=== PATIENT | male | born 1935 | race Caucasian/White ===

== ENCOUNTER 2018-05-08 12:53 | Inpatient (IN) | payer MEDICARE, OTHER ==
[2018-05-08 13:08] VITALS: BMI 24.3
[2018-05-08] MEDS ORDERED: dilTIAZem HCL 50 MG/10 ML - 10 ML VIAL IVPUSH ONE (13:33)
--- NOTE | 2018-05-08 13:41 | PDOC ---
History of Present Illness - General Chief Complaint: Irregular Heart Beat Stated Complaint: EVALUATION FOR CARDIAC DISEASE Time Seen by Provider: 05/08/18 13:03 - History of Present Illness Initial Comments: 05/08/18 13:35 83 year old man with history of DM2, COPD, CAD s/p PCI (), Afib (2014) , GIB (2015) and pericardial effusion s/p pericardial window (11/2011) who presents from PCP after pre-op physical exam for potential prostate resection and found to be in A.fib w/ RVR. The patient denies any chest pain, palpitations , nausea, diaphoresis or lightheadedness. He denies any symptoms and states he feels fine. Per PCP - the patient has had palpitations for the past 6 months and dyspnea and fatigue for the past 6 months. PMHX: as in HPI PSHX: see below Meds: camilo, metoprolol, renexa, ASA, finesteride Allergies: NKDA Tob: 1-2 cigarettes/ day PCP: Rosaura Past History - Past Medical History Allergies/Adverse Reactions: Allergies Allergy/AdvReac Type Severity Reaction Status Date / Time No Known Allergies Allergy Verified 05/08/18 13:04 Home Medications: Ambulatory Orders Amlodipine Bes/Olmesartan Med [Camilo 5-20 mg Tablet] 1 each PO DAILY 05/08/18 Aspirin [ASA -] 81 mg PO DAILY 05/08/18 Finasteride 5 mg PO DAILY 05/08/18 Metoprolol Succinate 25 mg PO DAILY 05/08/18 Ranolazine [Ranexa] 500 mg PO BID 05/08/18 Silodosin [Rapaflo] 4 mg PO DAILY 05/08/18 Cardiac Disorders: Yes (cad, stents, window) COPD: Yes CHF: Yes (+/- ble edema) DVT: No HTN: Yes Hypercholesterolemia: Yes - Surgical History Abdominal Surgery: Yes (L INGUINAL HERNIA REPAIR) Cardiac Surgery: Yes (STENT 1 CARDIAC, 1 LOWER EXTREMITY, FLUID REMOVED FROM AROUND HEART) - Immunization History Immunization Up to Date: Yes - Suicide/Smoking/Psychosocial Hx Smoking Status: Yes Smoking History: Current some day smoker Have you smoked in the past 12 months: Yes Number of Cigarettes Smoked Daily: 2 If you are a former smoker, when did you quit?: 7 MO Information on smoking cessation initiated: No Hx Alcohol Use: No Drug/Substance Use Hx: No Substance Use Type: None Hx Substance Use Treatment: No Review of Systems - Review of Systems Able to Perform ROS?: Yes Is the patient limited Kyrgyz proficient: No Constitutional: No: Chills, Diaphoresis, Fever *Physical Exam - Vital Signs Last Vital Signs Temp Pulse Resp BP Pulse Ox 99.1 F 139 H 19 99/77 99 05/08/18 13:04 05/08/18 13:04 05/08/18 13:04 05/08/18 13:04 05/08/18 13:04 - Physical Exam Comments: 05/08/18 13:41 GENERAL: Awake, alert, and fully oriented, in no acute distress HEAD: No signs of trauma, normocephalic, atraumatic EYES: PERRLA, EOMI, sclera anicteric, conjunctiva clear ENT: oropharynx clear without exudates. Moist mucosa NECK: Normal ROM, supple, no lymphadenopathy, JVD, or masses LUNGS: No distress, speaks full sentences, inspiratory and expiratory wheeze throughout HEART: irregular tachycardic rhythm, normal S1 and S2, no murmurs, rubs or gallops, peripheral pulses normal and equal bilaterally. ABDOMEN: Soft, nontender, normoactive bowel sounds. No guarding, no rebound. No masses EXTREMITIES : Normal inspection, Normal range of motion, no edema. No clubbing or cyanosis. NEUROLOGICAL: Cranial nerves II through XII grossly intact. Normal speech, normal gait, no focal sensorimotor deficits SKIN: Warm, Dry, normal turgor, no rashes or lesions noted ED Treatment Course - LABORATORY CBC & Chemistry Diagram: 05/08/18 13:55 05/08/18 13:55 - RADIOLOGY Radiology Studies Ordered: Category Date Time Status CXRPORT [CHEST X-RAY PORTABLE*] [RAD] Stat Radiology 05/08/18 13:33 Ordered Medical Decision Making - Medical Decision Making 05/08/18 13:38 83 year old man with history of CAD s/p PCI (), Afib (2014), GIB and pericardial effusion (2015) who presents from PCP after routine visit and found to be in A.fib w/ RVR. The patient denies any chest pain, palpitations, nausea, diaphoresis or lightheadedness. He denies any symptoms and states he feels fine. DDX including but not limited to: A.fib w/ RVR vs ACS W/U: - trop, cbc, cmp - EKG - CXR Tx: - diltiazem 10mg IV, 30mg PO - 1L NS ED Course: Patient denies any symptoms. tachycardic, irregular rhythm. 05/08/18 13:59 Patient responding well to diltiazem, HR coming down 100-110, SBP 140s 05/08/18 15:00 Trop: negative labwork unremarkable. 05/08/18 15:30 Patient reassessed. Stable. No acute distress. Patient admitted to medicine. *DC/Admit/Observation/Transfer Diagnosis at time of Disposition: Atrial fibrillation with RVR - Discharge Dispostion Condition at time of disposition: Stable Decision to Admit order: Yes - Referrals - Patient Instructions - Post Discharge Activity
[2018-05-08] MEDS ORDERED: SODIUM CHLORIDE 1,000 ML IV SCH (13:45)
[2018-05-08] MEDS ORDERED: dilTIAZem HCL 125 MG/25 ML - 25 ML VIAL ONE (13:51)
[2018-05-08 14:24] LABS: BASO % 0.7 % (0-2.0); EOS % 2.7 % (0-4.5); HEMATOCRIT 50.7 % (35.4-49); HEMOGLOBIN 16.2 GM/dL (11.7-16.9); MCH 26.1 pg (25.7-33.7); MEAN CELL VOLUME 81.4 fl (80-96); MEAN PLT VOLUME 8.4 fl (7.5-11.1); MONO % 10.6 % (3.8-10.2); PLATELET COUNT 268 K/MM3 (134-434); RBC 6.23 M/mm3 (4.00-5.60); WHITE BLOOD COUNT 4.1 K/mm3 (4.0-10.0)
[2018-05-08] MEDS ORDERED: dilTIAZem HCL 30 MG TABLET (FP) PO ONE (14:35)
--- NOTE | 2018-05-08 14:37 | PDOC ---
Attending Attestation - Resident Resident Name: Gayatri Miles - ED Attending Attestation I have performed the following: I have examined & evaluated the patient, The case was reviewed & discussed with the resident, I agree w/resident's findings & plan - HPI HPI: 05/08/18 14:33 83y/o M h/o afib s/p ablation, pericardial effusion s/p drainage about 6y ago, sent from PCP office after routine pre-op clearance for prostate procedure for eval and management of afib with rvr. Patient initially denies any specific complaints, but there appears to be some history of dyspnea on exertion for several months, denies ever having chest pain or pressure or syncope. - Physicial Exam PE: 05/08/18 14:34 Afebrile. Heart rate 140-150, blood pressure stable Well-appearing seated in stretcher, speaking full sentences Bibasilar crackles with expiratory wheezing, otherwise no accessory muscle use or retractions Heart is irregular and tachycardic Abdomen benign No edema - Critical Care Time Total Critical Care Time: 45 Critical Care Statement: The care of this patient involved high complexity decision making to prevent further life threatening deterioration of the patient 's condition and/or to evaluate & treat vital organ system(s) failure or risk of failure. - Medical Decision Making 05/08/18 14:34 83-year-old male found to be atrial fibrillation with RVR at routine PCP visit, sent for management. Likely subacute or chronic, blood pressure stable here. Patient immediately placed on monitor, EKG showed rapid atrial fibrillation Cardizem IV push improved heart rate to about 110, oral dose given We'll check labs, repeat EKG, chest x-ray Admission for cardiac monitoring, echo, assessment for anticoagulations 05/08/18 15:49 improved after diltiazem, tolerating well with HR 80s, BP 120s. admitted to tele for further cardiac eval. Heart Score/ECG Review #1 ECG reviewed & interpreted by me at: 13:05 05/08/18 14:36 afib with rvr at 135, RBBB, strain pattern V4-V6 without EMELY #2 ECG reviewed & interpreted by me at: 15:31 05/08/18 15:40 afib at 83 with pvc/aberrant conduction. IRBBB, no acute ST changes.
[2018-05-08] MEDS ORDERED: dilTIAZem HCL 30 MG TABLET (FP) ONE (14:38)
[2018-05-08 14:48] LABS: ANION GAP 7 MMOL/L (8-16); BILIRUBIN,TOTAL 0.3 mg/dL (0.2-1.0); BLOOD UREA NITROGEN 10 mg/dL (7-18); CALCIUM 9.6 mg/dL (8.5-10.1); CHLORIDE 102 mmol/L (98-107); CO2 29 mmol/L (21-32); GLUCOSE,RANDOM 99 mg/dL (74-106); POTASSIUM 4.5 mmol/L (3.5-5.1); SGOT/AST 21 U/L (15-37); SGPT/ALT 22 U/L (12-78); SODIUM 138 mmol/L (136-145); TOT PROT 8.7 g/dl (6.4-8.2)
[2018-05-08 14:51] LABS: ALK PHOS 77 U/L (45-117)
--- NOTE | 2018-05-08 16:06 | PN ---
Teaching Attending Note Name of Resident: Torito Bruce ATTENDING PHYSICIAN STATEMENT I saw and evaluated the patient. I reviewed the resident's note and discussed the case with the resident. I agree with the resident's findings and plan as documented with exceptions below. 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 Laurel Hubbard today for pre-op clearance for Prostatic surgery and noted with Afib with RVR on EKG and sent to the ED. Patient declined any specific complaints but reports exertional dyspnea and fatigue over last 6 months. States was in his USOH till 10 days ago when noticed some hematuria, seen by Dr. Atkinson's office, had a ?cystoscopy, noted with enlarged prostate, 3 days later had ana hematuria, was seen by urologist, offered white which he declined. His urine cleared over the next few days, currently reports occasional scant bloody tinge. No abdominal pain, fevers, chills, dysuria, frequency, urgency, back pain, chest pain or pressure, arm or jaw pain or claudication symptoms. Reports not seen his supervisor blood donor recruiters in a sometime, no recent cardiac testing. 12 point ROS done, neg except above No recent dark or bloody stools noted. Home BP monitoring SBP 130s, intermittent HR upto 90s few times a week, noted recently. OBJECTIVE: Vital Signs Period Temp Pulse Resp BP Sys/[place] Pulse Ox Last 24 Hr 99.1 F 138-139 19 99-110/77-79 99 Intake & Output 05/05/18 05/06/18 05/07/18 05/08/18 23:59 23:59 23:59 23:59 Weight 170 lb GENERAL: Awake, alert, and fully oriented, in no acute distress. HEAD: Normal with no signs of trauma. EYES: Pupils equal, round and reactive to light, extraocular movements intact, sclera anicteric, conjunctiva clear. No lid lag. EARS, NOSE, THROAT: Ears normal, nares patent, oropharynx clear without exudates. Moist mucous membranes. NECK: soft, supple, no JVD or masses noted LUNGS: distant but positive air entry consistent with COPD, no rales or wheezing noted HEART: Irregular rapid, unable to appreciate murmur or rub, limited by his lungs ABDOMEN: Soft, nontender, not distended, normoactive bowel sounds, no guarding, no rebound, no masses. MUSCULOSKELETAL: Normal range of motion at all joints. No bony deformities or tenderness. No CVA tenderness. UPPER EXTREMITIES: 2+ pulses, warm, well-perfused. No cyanosis. No clubbing. No peripheral edema. LOWER EXTREMITIES: 2+ pulses, warm, well-perfused. No calf tenderness. No peripheral edema. NEUROLOGICAL: facial symmetry, tongue midline, EOMI, power 5/5, sensation grossly intact and symmetric Cranial nerves II-XII intact. Normal speech. Gait deferred PSYCHIATRIC: Cooperative. Good eye contact. Appropriate mood and affect. SKIN: Warm, dry, normal turgor, no rashes or lesions noted, normal capillary refill. Home Medications Medication Instructions Recorded Amlodipine Bes/Olmesartan Med 1 each PO DAILY 05/08/18 [Terri 5-20 mg Tablet] Aspirin [ASA -] 81 mg PO DAILY 05/08/18 Metoprolol Succinate 25 mg PO DAILY 05/08/18 Ranolazine [Ranexa] 500 mg PO BID 05/08/18 Silodosin [Rapaflo] 4 mg PO DAILY 05/08/18 Active Medications Sodium Chloride (Normal Saline -) 1,000 mls @ 42 mls/hr IV ASDIR MARIUM Last Admin: 05/08/18 14:26 Dose: 42 mls/hr Laboratory Results - last 24 hr 05/08/18 05/08/18 13:55 13:55 WBC 4.1 RBC 6.23 H Hgb 16.2 Hct 50.7 H D MCV 81.4 MCH 26.1 D MCHC 32.0 RDW 17.0 H Plt Count 268 D MPV 8.4 Absolute Neuts (auto) 2.0 Neutrophils % 49.0 D Lymphocytes % 37.0 D Monocytes % 10.6 H Eosinophils % 2.7 D Basophils % 0.7 D Nucleated RBC % 0 Sodium 138 Potassium 4.5 Chloride 102 Carbon Dioxide 29 Anion Gap 7 L BUN 10 Creatinine 1.0 Creat Clearance w eGFR > 60 Random Glucose 99 Calcium 9.6 Total Bilirubin 0.3 AST 21 D ALT 22 Alkaline Phosphatase 77 Creatine Kinase 148 Troponin I < 0.02 Total Protein 8.7 H Albumin 4.0 EKG 1 Afib 120s, RBBB, LVH with strain pattern, no ST elevations EKG 2 HR 80s, no new changes CXR - no acute process ASSESSMENT AND PLAN: 83 yom with pMHx of CAD s/p pci x1 (cliff[facility] to pLAD 2012, no ID), Pericardial effusion s/p window 2012, PAD s/p b/l le stenting approx 2011, , HTN, HLD, diastolic CHF, copd, paroxysmal AFib diagnosed in 2014, placed on xarelto, Acute GIB with 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 -Atrial fibrillation with RVR -BPH with hematuria - CAD s/p pci x1 (clifford to pLAD 2012, no ID) -Pericardial effusion s/p window 2012 -PAD s/p b/l le stenting approx 2011, -Acute GIB with severe anemia from AVM/Diluefoy lesion in 09/2015, s/p clipping/ cautery -Diastolic CHF -HTN -HLD -COPD PLan: Change toprol to metoprolol tartarte 25 mg TID for now. Lopressor 5 mg IV q4-6 hr prn for sustained HR > 120. Check TSH, 2 D echo. Cardiology consult Dr. Leach. Patient had reportedly declined xarelto in 2015 after his GI bleed and wanted to continue ASA. Currently discussed in detail, stroke risk. Patient still concerned about his hematuria and has a procedure planned and does not want anything more than ASA for now, though relays understanding of increased stroke risk with his Afib and risk factors. Will defer further discussion to cardiology. Likely benefit from pre-op stress testing, will defer to cardiology inpatient vs outpatient. Check u/a, urine culture given procedure planned. Hold other anti-hypertensives to allow room for rate controlling agent. Continue ASA/ranexa. Check lipid panel. Continue finasteride. Flomax inhouse, resume rapaflo on discharge. DVTPPX heparin for now. Smoking cessation counseling DIspo pending clinical improvement. Admit to telemetry. Plan discussed with patient in detail, all questions answered. Patient relays understanding and in agreement. Total admit time 65 min.
[2018-05-08] MEDS ORDERED: METOPROLOL TARTRATE 5 MG/5 ML VIAL IVPUSH PRN ×2 (16:55→17:23)
--- NOTE | 2018-05-08 17:09 | EKG ---
Test Reason : Blood Pressure : / mmHG Vent. Rate : 084 BPM Atrial Rate : 085 BPM P-R Int : 000 ms QRS Dur : 116 ms QT Int : 376 ms P-R-T Axes : 000 -63 039 degrees QTc Int : 444 ms ATRIAL FIBRILLATION WITH PREMATURE VENTRICULAR OR ABERRANTLY CONDUCTED COMPLEXES LEFT AXIS DEVIATION RIGHT BUNDLE BRANCH BLOCK INFERIOR INFARCT (CITED ON OR BEFORE 08-MAY-2018) ABNORMAL ECG Confirmed by MD ADÁN, JANETH (2012) on 05/08/2018 5:09:35 PM Referred By: Confirmed By:JANETH MCCAIN MD
--- NOTE | 2018-05-08 17:12 | HP ---
CHIEF COMPLAINT: rapid heart rate PCP: Rosaura HISTORY OF PRESENT ILLNESS: 83 yo male with PMH of A-fib not on AC, COPD, HTN, CAD s/p PCI 2011 and 2012, GI Bleed in 2016 presented to the ED after being sent by herbarium curator due to A- fib with RVR found in the office today. He was being optimized for a possible procedure of his prostate. He states that a week and a half ago he noted some clots in his urine. He was seen by his urologist who performed a cystoscopy at that time. He states he was asymptomatic for 3 days and then started noticing some hematuria 7 days ago. He was seen by the urologist who recomended a catheter until a possible procedure for his enlarged prostate, which he refused. He currently denies any fevers, chills, chest pain, SOB, palpitations, abdominal pain. Of note he states that during the elaine, he gets SOB on exertion though that does not happen during the cooler weather. He says that he requires 7 or 8 bottles of water per day with the heat. ER course was notable for: (1) EKG noted for A-fib with RVR (2) Cardizem 10 IV and 30 PO (3) Recent Travel: none PAST MEDICAL HISTORY: as above PAST SURGICAL HISTORY: Left Inguinal Hernia repair Cardiac stent, Leg stent Pericardial window 2011 for effusion Social History: Smokin-2 cigarettes per day Alcohol: none Drugs: none Family History: Allergies No Known Allergies Allergy (Verified 05/08/18 13:04) HOME MEDICATIONS: Home Medications Medication Instructions Recorded Amlodipine Bes/Olmesartan Med 1 each PO DAILY 05/08/18 [Terri 5-20 mg Tablet] Aspirin [ASA -] 81 mg PO DAILY 05/08/18 Metoprolol Succinate 25 mg PO DAILY 05/08/18 Ranolazine [Ranexa] 500 mg PO BID 05/08/18 Silodosin [Rapaflo] 4 mg PO DAILY 05/08/18 REVIEW OF SYSTEMS CONSTITUTIONAL: Absent: fever, chills, diaphoresis, generalized weakness, malaise, loss of appetite, weight change HEENT: Absent: rhinorrhea, nasal congestion, throat pain, throat swelling, difficulty swallowing, mouth swelling, ear pain, eye pain, visual changes CARDIOVASCULAR: Absent: chest pain, syncope, palpitations, irregular heart rate, lightheadedness , peripheral edema RESPIRATORY: dyspnea with exertion Absent: cough, shortness of breath, , orthopnea, wheezing, stridor, hemoptysis GASTROINTESTINAL: Absent: abdominal pain, abdominal distension, nausea, vomiting, diarrhea, constipation, melena, hematochezia GENITOURINARY: hematuria Absent: dysuria, frequency, urgency, hesitancy, , flank pain, genital pain MUSCULOSKELETAL: Absent: myalgia, arthralgia, joint swelling, back pain, neck pain SKIN: Absent: rash, itching, pallor HEMATOLOGIC/IMMUNOLOGIC: Absent: easy bleeding, easy bruising, lymphadenopathy, frequent infections ENDOCRINE: Absent: unexplained weight gain, unexplained weight loss, heat intolerance, cold intolerance NEUROLOGIC: Absent: headache, focal weakness or paresthesias, dizziness, unsteady gait, seizure, mental status changes, bladder or bowel incontinence PSYCHIATRIC: Absent: anxiety, depression, suicidal or homicidal ideation, hallucinations. PHYSICAL EXAMINATION Vital Signs - 24 hr 05/08/18 05/08/18 05/08/18 13:04 14:28 16:52 Temperature 99.1 F 98.2 F Pulse Rate 139 H Pulse Rate [ 138 H 95 H Left] Respiratory 19 18 Rate Blood Pressure 99/77 Blood Pressure 110/79 [Left Arm] Blood Pressure 111/76 [Right Arm] O2 Sat by Pulse 99 96 Oximetry (%) GENERAL: A&O, no acute distress HEAD: Normocephalic, atraumatic. EYES: PERRL, no scleral icterus EARS, NOSE, THROAT: oropharynx clear without exudates. Moist mucous membranes. NECK: supple without lymphadenopathy LUNGS: CTA b/l, no crackles or wheezes HEART: Irregularly irregular, no murmurs ABDOMEN: Soft, nontender to palpation, normoactive bowel sounds MUSCULOSKELETAL: No bony deformities or tenderness. EXTREMITIES: 2+ pulses, warm, well-perfused. No peripheral edema. Clubbing of digits. NEUROLOGICAL: Cranial nerves II-XII grossly intact. Normal speech. PSYCHIATRIC: Cooperative. Good eye contact. Appropriate mood and affect. SKIN: Warm, dry, no rashes or lesions noted Laboratory Results - last 24 hr 05/08/18 05/08/18 13:55 13:55 WBC 4.1 RBC 6.23 H Hgb 16.2 Hct 50.7 H D MCV 81.4 MCH 26.1 D MCHC 32.0 RDW 17.0 H Plt Count 268 D MPV 8.4 Absolute Neuts (auto) 2.0 Neutrophils % 49.0 D Lymphocytes % 37.0 D Monocytes % 10.6 H Eosinophils % 2.7 D Basophils % 0.7 D Nucleated RBC % 0 Sodium 138 Potassium 4.5 Chloride 102 Carbon Dioxide 29 Anion Gap 7 L BUN 10 Creatinine 1.0 Creat Clearance w eGFR > 60 Random Glucose 99 Calcium 9.6 Total Bilirubin 0.3 AST 21 D ALT 22 Alkaline Phosphatase 77 Creatine Kinase 148 Troponin I < 0.02 Total Protein 8.7 H Albumin 4.0 ASSESSMENT/PLAN: 83 yo male with PMH of A-fib not on AC, COPD, HTN, CAD s/p PCI 2011 and 2012, GI Bleed in 2016 admitted for A-fib with RVR A-fib with RVR -Sent by Cardiology for A-fib with RVR on ECG -ECG noted here, initially A-fib in 130s, down to 80-100 currently -Lopressor 25 mg PO TID for Rate control (hold for systolic b.p < 90) -Lopressor 5 mg IV Q4 PRN HR > 120 -Cardiology consulted -Echo ordered -UA ordered to rule out infectious causes -TSH ordered to r/o hypothyroidism HTN -B.P currently stable -Hold all other bp meds ([id number]) BPH with recent Hematuria -will monitor hematuria -continue home Rapaflo 4 mg PO Daily -UA as above COPD -Possible mild COPD noted on CT chest of prior admission -Pt not on any bronchodilators or steroids at home -Not in exacerbation at this time DVT Prophylaxis -Early ambulation, SCDs -Will hold until cardiology recommendation due to Hx GI bleed, current hematuria , and pt refusing blood thinners FEN -Fluids: none -Electrolytes: No electrolyte abnormalities, BMP in AM -Nutrition: Sodium controlled diet Disposition Telemetry Visit type - Emergency Visit Emergency Visit: Yes ED Registration Date: 05/08/18 Care time: The patient presented to the Emergency Department on the above date and was hospitalized for further evaluation of their emergent condition. - New Patient This patient is new to me today: Yes Date on this admission: 05/08/18 - Critical Care Critical Care patient: No Hospitalist Screening - Colonoscopy Questionnaire Colonoscopy Questionnaire: Colonoscopy Questionnaire - Patient: 50 - 75 years old and never had a screening colonoscopy: No History of colon or rectal polyps, or CA: Unknown History of IBD, Crohn's disease or UC: Unknown History of abdominal radiation therapy as a child: Unknown - Relative: 1 with colon or rectal CA, or polyps at age 60 or younger: Unknown Colon or rectal CA diagnosed at age 45 or younger: Unknown Multiple relatives with colon or rectal CA: Unknown - Outcome: Screening Result: Negative Screen
[2018-05-08] MEDS: ASPIRIN 81 MG CHEWABLE TABLETS PO SCH (20:35)
[2018-05-08] MEDS: RANOLAZINE E.R. 500 MG TABLET (FP) PO SCH (21:03)
[2018-05-08] MEDS: METOPROLOL TARTRATE 25 MG TABLET (FP) PO SCH (21:03)
[2018-05-08] MEDS: ENOXAPARIN NA (PORCINE) 80 MG/0.8 ML DISP.SYRIN SQ SCH (21:03)
[2018-05-08] MEDS ORDERED: METOPROLOL TARTRATE 25 MG TABLET (FP) PO SCH (22:00)
[2018-05-08] MEDS ORDERED: HEPARIN NA (PORCINE) 5,000 UNITS/ML 1ML VIAL SQ SCH (22:00)
--- NOTE | 2018-05-08 22:01 | CON.CARD ---
Consult - History of Present Illness History of Present Illness: 83 yo male with PMH of A-fib not on AC, COPD, HTN, CAD s/p PCI 2011 and 2013, GI Bleed in 2016 presented to the ED after being sent by mechanic due to A- fib with RVR found in the office today. He was being optimized for a possible procedure of his prostate. He states that a week and a half ago he noted some clots in his urine. He was seen by his urologist who performed a cystoscopy at that time. He states he was asymptomatic for 3 days and then started noticing some hematuria 7 days ago. He was seen by the urologist who recomended a catheter until a possible procedure for his enlarged prostate, which he refused. He currently denies any fevers, chills, chest pain, SOB, palpitations, abdominal pain. Of note he states that during the elaine, he gets SOB on exertion though that does not happen during the cooler weather. He says that he requires 7 or 8 bottles of water per day with the heat. ER course was notable for: (1) EKG noted for A-fib with RVR (2) Cardizem 10 IV and 30 PO - Past Medical History Cardio/Vascular: Yes: AFIB, CAD, CHF, HTN, Hyperlipdemia Pulmonary: Yes: COPD Endocrine: Yes: Diabetes Mellitus - Past Surgical History Past Surgical History: Yes: Hernia Repair, Stent (cardiac/lower extremity) - Alcohol/Substance Use Hx Alcohol Use: No History of Substance Use: reports: None - Smoking History Smoking history: Former smoker Have you smoked in the past 12 months: No Aproximately how many cigarettes per day: 2 If you are a former smoker, when did you quit?: few years - Social History History of Recent Travel: No Home Medications - Allergies Allergies/Adverse Reactions: Allergies Allergy/AdvReac Type Severity Reaction Status Date / Time No Known Allergies Allergy Verified 05/08/18 13:04 - Home Medications Home Medications: Ambulatory Orders Amlodipine Bes/Olmesartan Med [Terri 5-20 mg Tablet] 1 each PO DAILY 05/08/18 Aspirin [ASA -] 81 mg PO DAILY 05/08/18 Finasteride 5 mg PO DAILY 05/08/18 Metoprolol Succinate 25 mg PO DAILY 05/08/18 Ranolazine [Ranexa] 500 mg PO BID 05/08/18 Silodosin [Rapaflo] 4 mg PO DAILY 05/08/18 Vital Signs: Vital Signs Temperature 98.4 F 05/08/18 21:00 Pulse Rate 83 05/08/18 21:00 Respiratory Rate 17 05/08/18 21:00 Blood Pressure 111/62 05/08/18 21:00 O2 Sat by Pulse Oximetry (%) 96 05/08/18 16:52 - Other Data Labs, Other Data: CBC, BMP 05/08/18 13:55 05/08/18 13:55 Troponin, BNP 05/08/18 05/08/18 13:55 19:40 Troponin I < 0.02 < 0.02 Troponin, BNP 05/08/18 05/08/18 13:55 19:40 Troponin I < 0.02 < 0.02
[2018-05-09 03:29] LABS: URINE APPEARANCE CLEAR; URINE BILIRUBIN NEGATIVE (<2.0 mg/dL); URINE COLOR LTYELLOW; URINE GLUCOSE (UA) NEGATIVE (NEGATIVE); URINE KETONE NEGATIVE (NEGATIVE); URINE NITRITE NEGATIVE (NEGATIVE); URINE PROTEIN NEGATIVE (NEGATIVE); URINE UROBILINOGEN NEGATIVE mg/dL (0.2-1.0)
[2018-05-09 03:41] LABS: URINE LEUK ESTERASE 1+ (NEGATIVE)
[2018-05-09 03:42] LABS: URINE BACTERIA FEW /hpf (NONE SEEN); URINE MUCUS RARE
[2018-05-09] MEDS: METOPROLOL TARTRATE 25 MG TABLET (FP) PO SCH (06:23)
[2018-05-09 06:34] LABS: BASO % 0.8 % (0-2.0); HEMATOCRIT 40.4 % (35.4-49); HEMOGLOBIN 12.7 GM/dL (11.7-16.9); MCH 25.7 pg (25.7-33.7); MCHC 31.5 g/dl (32.0-35.9); MEAN CELL VOLUME 81.6 fl (80-96); NEUT % 37.2 % (42.8-82.8); PLATELET COUNT 188 K/MM3 (134-434); RBC 4.95 M/mm3 (4.00-5.60); RDW 16.9 % (11.9-15.9); WHITE BLOOD COUNT 3.5 K/mm3 (4.0-10.0)
[2018-05-09 07:13] LABS: CHOLESTEROL 146 mg/dL (50-200); TRIGLYCERIDES 190 mg/dL (35-160)
[2018-05-09 07:16] LABS: HDL CHOLESTEROL 25 mg/dL (40-60)
--- NOTE | 2018-05-09 07:52 | PN ---
Teaching Attending Note Name of Resident: Torito Bruce ATTENDING PHYSICIAN STATEMENT I saw and evaluated the patient. I reviewed the resident's note and discussed the case with the resident. I agree with the resident's findings and plan as documented with exceptions below. SUBJECTIVE: Patient seen and examined. had some dizziness last night but none recently. NO new chest pain, palpitations, or concerns. Feels well, no hematuria or bleed noted OBJECTIVE: Vital Signs Period Temp Pulse Resp BP Sys/[place] Pulse Ox Last 24 Hr 98.1 F-99.1 F 63-139 16-19 99-130/56-89 96-99 Intake & Output 05/06/18 05/07/18 05/08/18 05/09/18 23:59 23:59 23:59 23:59 Intake Total 574 130 Balance 574 130 Weight 170 lb General: sitting in bed in no acute distress Chest: CTAB, no rales or wheezing CVS: S1S2 regular Abdomen: soft, NT Extremities: no edema Active Medications Aspirin (Asa -) 81 mg PO DAILY [facility] Last Admin: 05/08/18 20:35 Dose: 81 mg Atorvastatin Calcium (Lipitor -) 20 mg PO HS [facility] Enoxaparin Sodium (Lovenox -) 80 mg SQ BID [facility] Last Admin: 05/08/18 21:03 Dose: 80 mg Finasteride (Proscar -) 5 mg PO DAILY [facility] Sodium Chloride (Normal Saline -) 1,000 mls @ 42 mls/hr IV ASDIR [facility] Last Admin: 05/08/18 14:26 Dose: 42 mls/hr Metoprolol Tartrate (Lopressor -) 25 mg PO TID [facility] Last Admin: 05/09/18 06:23 Dose: 25 mg Metoprolol Tartrate (Lopressor Injection -) 5 mg IVPUSH Q4H PRN PRN Reason: HYPERTENSION Ranolazine (Ranexa -) 500 mg PO BID [facility] Last Admin: 05/08/18 21:03 Dose: 500 mg Tamsulosin HCl (Flomax -) 0.4 mg PO DAILY@0830 [facility] Telemetry: reverted to NSr around midnight, in NSR currently 60s Laboratory Results - last 24 hr 05/08/18 05/08/18 05/08/18 13:55 13:55 19:40 WBC 4.1 RBC 6.23 H Hgb 16.2 Hct 50.7 H D MCV 81.4 MCH 26.1 D MCHC 32.0 RDW 17.0 H Plt Count 268 D MPV 8.4 Absolute Neuts (auto) 2.0 Neutrophils % 49.0 D Lymphocytes % 37.0 D Monocytes % 10.6 H Eosinophils % 2.7 D Basophils % 0.7 D Nucleated RBC % 0 Sodium 138 Potassium 4.5 Chloride 102 Carbon Dioxide 29 Anion Gap 7 L BUN 10 Creatinine 1.0 Creat Clearance w eGFR > 60 Random Glucose 99 Calcium 9.6 Phosphorus Magnesium Total Bilirubin 0.3 AST 21 D ALT 22 Alkaline Phosphatase 77 Creatine Kinase 148 Troponin I < 0.02 < 0.02 Total Protein 8.7 H Albumin 4.0 Triglycerides Cholesterol Total LDL Cholesterol HDL Cholesterol TSH Urine Color Urine Appearance Urine pH Ur Specific [place] Urine Protein Urine Glucose (UA) Urine Ketones Urine Blood Urine Nitrite Urine Bilirubin Urine Urobilinogen Ur Leukocyte Esterase Urine WBC (Auto) Urine RBC (Auto) Urine Bacteria Urine Mucus 05/08/18 05/09/18 05/09/18 19:40 00:01 05:30 WBC RBC Hgb Hct MCV MCH MCHC RDW Plt Count MPV Absolute Neuts (auto) Neutrophils % Lymphocytes % Monocytes % Eosinophils % Basophils % Nucleated RBC % Sodium Potassium Chloride Carbon Dioxide Anion Gap BUN Creatinine Creat Clearance w eGFR Random Glucose Calcium Phosphorus 3.0 D Magnesium 2.0 Total Bilirubin AST ALT Alkaline Phosphatase Creatine Kinase Troponin I Total Protein Albumin Triglycerides 190 H Cholesterol 146 Total LDL Cholesterol 104 H HDL Cholesterol 25 L D TSH 1.51 D Urine Color Ltyellow Urine Appearance Clear Urine pH 6.0 Ur Specific [place] 1.013 Urine Protein Negative Urine Glucose (UA) Negative Urine Ketones Negative Urine Blood Negative Urine Nitrite Negative Urine Bilirubin Negative Urine Urobilinogen Negative Ur Leukocyte Esterase 1+ H Urine WBC (Auto) 22 Urine RBC (Auto) 7 Urine Bacteria Few Urine Mucus Rare 05/09/18 05/09/18 05:30 05:30 WBC 3.5 L RBC 4.95 Hgb 12.7 Hct 40.4 D MCV 81.6 MCH 25.7 MCHC 31.5 L RDW 16.9 H Plt Count 188 D MPV 8.0 Absolute Neuts (auto) 1.3 L Neutrophils % 37.2 L D Lymphocytes % 43.0 H Monocytes % 12.0 H Eosinophils % 7.0 H D Basophils % 0.8 Nucleated RBC % 0 Sodium Cancelled Potassium Cancelled Chloride Cancelled Carbon Dioxide Cancelled Anion Gap Cancelled BUN Cancelled Creatinine Cancelled Creat Clearance w eGFR Cancelled Random Glucose Cancelled Calcium Cancelled Phosphorus Magnesium Total Bilirubin AST ALT Alkaline Phosphatase Creatine Kinase Troponin I Total Protein Albumin Triglycerides Cholesterol Total LDL Cholesterol HDL Cholesterol TSH Urine Color Urine Appearance Urine pH Ur Specific [place] Urine Protein Urine Glucose (UA) Urine Ketones Urine Blood Urine Nitrite Urine Bilirubin Urine Urobilinogen Ur Leukocyte Esterase Urine WBC (Auto) Urine RBC (Auto) Urine Bacteria Urine Mucus ASSESSMENT AND PLAN: 83 yom with pMHx of CAD s/p pci x1 ([place] to pLAD 2012, no NV), Pericardial effusion s/p window 2012, PAD s/p b/l le stenting approx 2011, , HTN, HLD, diastolic CHF, copd, paroxysmal AFib diagnosed in 2014, placed on xarelto, Acute GIB with 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 -Atrial fibrillation with RVR -BPH with hematuria - CAD s/p pci x1 (cl[place] to pLAD 2012, no NV) -Pericardial effusion s/p window 2012 -PAD s/p b/l le stenting approx 2011, -Acute GIB with severe anemia from AVM/Diluefoy lesion in 09/2015, s/p clipping/ cautery -Diastolic CHF -HTN -HLD -COPD PLan: Reverted to NSR. Metoprolol tartarte 25 mg BID as tolerated. Lopressor 5 mg IV q4-6 hr prn for sustained HR > 120. TSH WNL, follow up 2 D echo. Cardiology consulted, discussed with Dr. Joy. Stress test, NPO for now. Lipid panel noted, start lipitor 20 mg hs. Patient had reportedly declined xarelto in 2016 after his GI bleed and wanted to continue ASA. Currently discussed in detail, stroke risk. Patient still concerned about his hematuria and has a procedure planned and does not want anything more than ASA for now, though relays understanding of increased stroke risk with his Afib and risk factors. Will defer further discussion to cardiology. U/a noted. Hold other anti-hypertensives to allow room for rate controlling agent. Continue ASA/ranexa. Continue finasteride. Flomax inhouse, resume rapaflo on discharge. DVTPPX heparin for now. Smoking cessation counseling Dispo pending clinical improvement. Plan discussed with patient in detail, all questions answered. Patient relays understanding and in agreement.
[2018-05-09] MEDS ORDERED: TAMSULOSIN HCL 0.4 MG CAP.ER.24H (FP) PO SCH (08:30)
[2018-05-09] MEDS ORDERED: PATIENT'S OWN MEDICATION (NON-FORMULARY) (Silodosin [Rapaflo] 4 MG) PO SCH (10:00)
[2018-05-09] MEDS ORDERED: ASPIRIN 81 MG CHEWABLE TABLETS PO SCH (10:00)
[2018-05-09] MEDS ORDERED: FINASTERIDE 5 MG TABLET (FP) PO SCH (10:00)
--- NOTE | 2018-05-09 10:28 | CON.CARD ---
Consult Consult Specialty:: cardiology Reason for Consultation:: AF - History of Present Illness Chief Complaint: Pt A&Ox3; no chest pain; + SOB on minimal exertion History of Present Illness: 83 year old man (linsey Cramer) with history of DM2, COPD, CAD s/p PCI (), Afib (2014), GIB (2015) and pericardial effusion--> pericardial window (11/2011) , who presents from PCP after pre-op physical exam for potential prostate resection and found to be in A.fib w/ RVR. The patient denies any chest pain, palpitations, nausea, diaphoresis or lightheadedness. He denies any symptoms and states he feels fine. Per PCP - the patient has had palpitations for the past 6 months and dyspnea and fatigue for the past 6 months. PMHX: as in HPI PSHX: see below Meds: camilo, metoprolol, renexa, ASA, finesteride Allergies: NKDA Tob: 1-2 cigarettes/ day - History Source History Provided By: Patient, Medical Record Limitations to Obtaining History: No Limitations - Past Medical History Cardio/Vascular: Yes: AFIB, CAD, CHF, HTN, Hyperlipdemia Pulmonary: Yes: COPD Gastrointestinal: Yes: GERD Endocrine: Yes: Diabetes Mellitus - Past Surgical History Past Surgical History: Yes: Hernia Repair, Stent (cardiac/lower extremity) - Alcohol/Substance Use Hx Alcohol Use: No History of Substance Use: reports: None - Smoking History Smoking history: Former smoker Have you smoked in the past 12 months: No Aproximately how many cigarettes per day: 2 If you are a former smoker, when did you quit?: few years - Social History History of Recent Travel: No Home Medications - Allergies Allergies/Adverse Reactions: Allergies Allergy/AdvReac Type Severity Reaction Status Date / Time No Known Allergies Allergy Verified 05/08/18 13:04 - Home Medications Home Medications: Ambulatory Orders Amlodipine Bes/Olmesartan Med [[place] 5-20 mg Tablet] 1 each PO DAILY 05/08/18 Aspirin [ASA -] 81 mg PO DAILY 05/08/18 Finasteride 5 mg PO DAILY 05/08/18 Metoprolol Succinate 25 mg PO DAILY 05/08/18 Ranolazine [Ranexa] 500 mg PO BID 05/08/18 Silodosin [Rapaflo] 4 mg PO DAILY 05/08/18 Family Disease History - Family Disease History Family History: Denies Review of Systems - Review of Systems Constitutional: reports: No Symptoms Eyes: reports: No Symptoms HENT: reports: No Symptoms Neck: reports: No Symptoms Cardiovascular: reports: No Symptoms Respiratory: reports: No Symptoms Gastrointestinal: reports: No Symptoms Genitourinary: reports: No Symptoms Breasts: reports: No Symptoms Reported Musculoskeletal: reports: No Symptoms Integumentary: reports: No Symptoms Neurological: reports: No Symptoms Endocrine: reports: No Symptoms Hematology/Lymphatic: reports: No Symptoms Psychiatric: reports: No Symptoms - Risk Factors Known Risk Factors: Yes: Age, Diabetes Mellitus, Gender, Hypercholesterolemia, Hypertension, Physical Inactivity, Smoking, Other (CAD-->coronary stent) Vital Signs: Vital Signs Temperature 98.3 F 05/09/18 05:00 Pulse Rate 63 05/09/18 09:00 Respiratory Rate 22 05/09/18 09:00 Blood Pressure 128/75 05/09/18 09:00 O2 Sat by Pulse Oximetry (%) 98 05/08/18 22:00 Constitutional: Yes: Calm Eyes: Yes: WNL HENT: Yes: WNL Neck: Yes: WNL Respiratory: Yes: WNL Gastrointestinal: Yes: WNL Renal/: No: Anuria Cardiovascular: Yes: Pulse Irregular JVD: No Carotid Bruit: No PMI: Non-Displaced Heart Sounds: Yes: S1 (varies in intensity) Murmur: Yes: Systolic Murmur, Grade 2 Musculoskeletal: Yes: WNL Extremities: Yes: WNL Edema: No Peripheral Pulses WNL: Yes Integumentary: Yes: WNL Neurological: Yes: WNL Psychiatric: Yes: WNL - Other Data Labs, Other Data: CBC, BMP 05/09/18 05:30 Troponin, BNP 05/08/18 05/08/18 13:55 19:40 Troponin I < 0.02 < 0.02 Troponin, BNP 05/08/18 05/08/18 13:55 19:40 Troponin I < 0.02 < 0.02 Imaging - Results EKG: Image Reviewed (AF; RBBB;) Problem List - Problems (1) Atrial fibrillation with RVR Assessment/Plan: On metoprolol for HR control ((Hx COPD; assure pt does not have bronchial asthma ). Pt says he has been on ASA. With AF and his [id number] score, he should be on warfarin or a NOAC, but gives hx GI bleed in the past. Hx coronary stent a few years ago; continue ASA. Code(s): I48.91 - UNSPECIFIED ATRIAL FIBRILLATION (2) Acute exacerbation of chronic obstructive pulmonary disease Code(s): J44.1 - CHRONIC OBSTRUCTIVE PULMONARY DISEASE W (ACUTE) EXACERBATION (3) Tobacco dependence Assessment/Plan: the importance of smoking cessation was discussed. Code(s): F17.200 - NICOTINE DEPENDENCE, UNSPECIFIED, UNCOMPLICATED (4) COPD (chronic obstructive pulmonary disease) Assessment/Plan: mild COPD on 2016 CT chest; recommend f/u study, in view of continued tobacco use. Code(s): J44.9 - CHRONIC OBSTRUCTIVE PULMONARY DISEASE, UNSPECIFIED (5) CAD (coronary artery disease) Assessment/Plan: f/o record (hx CAD-->coronary stent by Dr. Godinez several years ago). F/u lipids; statin. F/u pulmonary w/u (COPD). Encourage tobacco cessation. Consider stress MIBI. Code(s): I25.10 - ATHSCL HEART DISEASE OF [place] CORONARY ARTERY W/O ANG PCTRS (6) [place] cardiac risk >20% in next 10 years Assessment/Plan: Pt for stress MIBI in am. Code(s): Z91.89 - OTH PERSONAL RISK FACTORS, NOT ELSEWHERE CLASSIFIED
[2018-05-09] MEDS ORDERED: REGADENOSON 0.4 MG/5 ML PRE-FILLED SYRINGE IVPUSH ONE ×2 (11:45→11:53)
--- NOTE | 2018-05-09 11:51 | EKG ---
Test Reason : Blood Pressure : / mmHG Vent. Rate : 135 BPM Atrial Rate : 208 BPM P-R Int : 000 ms QRS Dur : 104 ms QT Int : 308 ms P-R-T Axes : 000 -52 034 degrees QTc Int : 462 ms POOR DATA QUALITY, INTERPRETATION MAY BE ADVERSELY AFFECTED ATRIAL FIBRILLATION WITH RAPID VENTRICULAR RESPONSE LEFT AXIS DEVIATION INCOMPLETE RIGHT BUNDLE BRANCH BLOCK INFERIOR INFARCT (CITED ON OR BEFORE 08-MAY-2018) ABNORMAL ECG WHEN COMPARED WITH ECG OF 12-DEC-2015 10:28, ATRIAL FIBRILLATION HAS REPLACED SINUS RHYTHM VENT. RATE HAS INCREASED BY [address] NOW DEPRESSED IN ANTERIOR LEADS Confirmed by AILEEN FINN, MARY ([id number]) on 05/09/2018 11:51:18 AM Referred By: Confirmed By:MARY GALLAGHER MD
--- NOTE | 2018-05-09 12:04 | ECHO ---
Name: ALVERTO ONEAL Exam:Adult Echocardiogram Study Date: 05/09/2018 07:31 AM Age: 83 yrs Reason For Study: A-Fib Height: 70 in Weight: 170 lb BSA: 1.9 m2 MMode/2D Measurements & Calculations IVSd: 1.3 cm Ao root diam: 3.5 cm LVIDd: 4.0 cm LA dimension: 3.4 cm LVIDs: 2.6 cm LVPWd: 1.1 cm EDV(Teich): 68.7 ml LAV (MOD-bp): 40.6 ml ESV(Teich): 25.2 ml Doppler Measurements & Calculations MV E max dre: 70.3 cm/sec MR max dre: 246.4 cm/sec MV A max dre: 67.9 cm/sec MR max P.3 mmHg MV E/A: 1.0 MV dec time: 0.50 sec TR max dre: 238.6 cm/sec Med Peak E' Dre: 8.1 cm/sec TR max P.8 mmHg Med E/e': 8.7 Lat Peak E' Dre: 7.4 cm/sec Lat E/e': 9.5 PI Vmax: 127.6 cm/sec Procedure A two-dimensional transthoracic echocardiogram with color flow and Doppler was performed. The patient was in normal sinus rhythm during the exam. Left Ventricle The left ventricular size, thickness and function are normal. The left ventricular ejection fraction is normal. Left Ventricular Filling pattern is normal for age. The left ventricular wall motion is hayden l. Right Ventricle The right ventricle is normal in size and function. Atria Normal left and right atrial size and function. Mitral Valve There is mild mitral valve thickening. There is no mitral valve stenosis. There is mild to moderate m itral regurgitation. Tricuspid Valve There is mild tricuspid valve thickening. There is no tricuspid stenosis. There is moderate to severe tricuspid regurgitation. Right ventricular systolic pressure is normal. Aortic Valve The aortic valve is normal in structure and function. No hemodynamically significant valvular aortic stenosis. No aortic regurgitation is present. Pulmonic Valve The pulmonic valve is not well visualized. There is no pulmonic valvular stenosis. Trace to mild pulm onic valvular regurgitation. Great Vessels The aortic root is normal size. Pericardium/Pleura There is no pericardial effusion. Interpretation Summary The patient was in normal sinus rhythm during the exam. A two-dimensional transthoracic echocardiogram with color flow and Doppler was performed. The left ventricular size, thickness and function are normal The left ventricular ejection fraction is normal. There is mild to moderate mitral regurgitation. There is moderate to severe tricuspid regurgitation. Right ventricular systolic pressure is normal. Left Ventricular Filling pattern is normal for age. The left ventricular wall motion is normal. MD Ryan Joy 05/09/2018 12:03 PM
[2018-05-09 12:18] LABS: ANION GAP 7 MMOL/L (8-16); BLOOD UREA NITROGEN 13 mg/dL (7-18); CALCIUM 8.6 mg/dL (8.5-10.1); CHLORIDE 108 mmol/L (98-107); CO2 27 mmol/L (21-32); GLUCOSE,RANDOM 98 mg/dL (74-106); POTASSIUM 4.7 mmol/L (3.5-5.1); SODIUM 142 mmol/L (136-145)
--- NOTE | 2018-05-09 14:43 | DS ---
Physical Exam: SUBJECTIVE: Patient seen and examined this AM. He mentions that he had some dizziness when he stood up too quickly but otherwise has no complaints at all overnight. Denies any chest pain, SOB, palpitations, n/v/d. OBJECTIVE: Vital Signs Period Temp Pulse Resp BP Sys/[place] Pulse Ox Last 24 Hr 98.1 F-98.4 F 63-102 16-22 100-130/56-89 96-98 PHYSICAL EXAM GENERAL: A&O, no acute distress HEAD: Normocephalic, atraumatic. EYES: PERRL, no scleral icterus EARS, NOSE, THROAT: oropharynx clear without exudates. Moist mucous membranes. NECK: supple without lymphadenopathy LUNGS: CTA b/l, no crackles or wheezes HEART: Regular rate and rythm today, no murmurs ABDOMEN: Soft, nontender to palpation, normoactive bowel sounds MUSCULOSKELETAL: No bony deformities or tenderness. EXTREMITIES: 2+ pulses, warm, well-perfused. No peripheral edema. Clubbing of digits. NEUROLOGICAL: Cranial nerves II-XII grossly intact. Normal speech. PSYCHIATRIC: Cooperative. Good eye contact. Appropriate mood and affect. SKIN: Warm, dry, no rashes or lesions noted LABS Laboratory Results - last 24 hr 05/08/18 05/08/18 05/08/18 13:55 19:40 19:40 WBC RBC Hgb Hct MCV MCH MCHC RDW Plt Count MPV Absolute Neuts (auto) Neutrophils % Lymphocytes % Monocytes % Eosinophils % Basophils % Nucleated RBC % Sodium 138 Potassium 4.5 Chloride 102 Carbon Dioxide 29 Anion Gap 7 L BUN 10 Creatinine 1.0 Creat Clearance w eGFR > 60 Random Glucose 99 Calcium 9.6 Phosphorus Magnesium Total Bilirubin 0.3 AST 21 D ALT 22 Alkaline Phosphatase 77 Creatine Kinase 148 Troponin I < 0.02 < 0.02 Total Protein 8.7 H Albumin 4.0 Triglycerides Cholesterol Total LDL Cholesterol HDL Cholesterol TSH 1.51 D Urine Color Urine Appearance Urine pH Ur Specific [place] Urine Protein Urine Glucose (UA) Urine Ketones Urine Blood Urine Nitrite Urine Bilirubin Urine Urobilinogen Ur Leukocyte Esterase Urine WBC (Auto) Urine RBC (Auto) Urine Bacteria Urine Mucus 05/09/18 05/09/18 05/09/18 00:01 05:30 05:30 WBC 3.5 L RBC 4.95 Hgb 12.7 Hct 40.4 D MCV 81.6 MCH 25.7 MCHC 31.5 L RDW 16.9 H Plt Count 188 D MPV 8.0 Absolute Neuts (auto) 1.3 L Neutrophils % 37.2 L D Lymphocytes % 43.0 H Monocytes % 12.0 H Eosinophils % 7.0 H D Basophils % 0.8 Nucleated RBC % 0 Sodium 142 Potassium 4.7 Chloride 108 H Carbon Dioxide 27 Anion Gap 7 L BUN 13 Creatinine 1.0 Creat Clearance w eGFR > 60 Random Glucose 98 Calcium 8.6 Phosphorus 3.0 D Magnesium 2.0 Total Bilirubin AST ALT Alkaline Phosphatase Creatine Kinase Troponin I Total Protein Albumin Triglycerides 190 H Cholesterol 146 Total LDL Cholesterol 104 H HDL Cholesterol 25 L D TSH Urine Color Ltyellow Urine Appearance Clear Urine pH 6.0 Ur Specific [place] 1.013 Urine Protein Negative Urine Glucose (UA) Negative Urine Ketones Negative Urine Blood Negative Urine Nitrite Negative Urine Bilirubin Negative Urine Urobilinogen Negative Ur Leukocyte Esterase 1+ H Urine WBC (Auto) 22 Urine RBC (Auto) 7 Urine Bacteria Few Urine Mucus Rare 05/09/18 05:30 WBC RBC Hgb Hct MCV MCH MCHC RDW Plt Count MPV Absolute Neuts (auto) Neutrophils % Lymphocytes % Monocytes % Eosinophils % Basophils % Nucleated RBC % Sodium Cancelled Potassium Cancelled Chloride Cancelled Carbon Dioxide Cancelled Anion Gap Cancelled BUN Cancelled Creatinine Cancelled Creat Clearance w eGFR Cancelled Random Glucose Cancelled Calcium Cancelled Phosphorus Magnesium Total Bilirubin AST ALT Alkaline Phosphatase Creatine Kinase Troponin I Total Protein Albumin Triglycerides Cholesterol Total LDL Cholesterol HDL Cholesterol TSH Urine Color Urine Appearance Urine pH Ur Specific [place] Urine Protein Urine Glucose (UA) Urine Ketones Urine Blood Urine Nitrite Urine Bilirubin Urine Urobilinogen Ur Leukocyte Esterase Urine WBC (Auto) Urine RBC (Auto) Urine Bacteria Urine Mucus IMAGING: CXR: No Acute Chest Pathology ECHO: Moderate to Severe Mitral Regurgitation, otherwise normal echo LEXISCAN stress test: Negative for Ischemia HOSPITAL COURSE: Date of Admission:05/08/18 Date of Discharge: 05/09/18 The patient was admitted to the hospital for A-fib with RVR and a recent complaint of hematuria which was not currently occurring on admission. He has a history of A-fib and mentions that he checks his blood pressure at home and finds his pulse often in the 130s. He is not on anticoagulation due to a GI bleed a few years ago, and on extensive discussion, does not want to be placed back on any anticoagulation at this time. His rate was controlled with Lopressor 25 mg PO with Lopressor 5 mg IV PRN which he did not require. He was switched back to his home Toprol XL dose of 25 mg Daily. During his admission, an ECHO was performed as above, and he was seen by cardiology who recommended a Lexiscan which was negative as reported as above. He was deemed medically safe for discharge with close follow up by solution lead, PCP, and Urology. Minutes to complete discharge: 40 Discharge Summary Reason For Visit: ATRIAL FIB W RAPID VENTRICULAR RESPONSE Current Active Problems Atrial fibrillation with RVR (Acute) Condition: Stable - Instructions Diet, Activity, Other Instructions: You were admitted to the hospital after being sent by your solution lead for a rapid heart rate. Your heart rate was controlled with medication. An ultrasound of your heart was done which shows you have a valve (your tricuspid valve) that is leaky. You were seen by Cardiology who recommended that you have a stress test of your heart done which did not show any abnormalities. At this time you are medically safe to go home with close follow up by your solution lead. It is important that you discuss with your primary care physician about blood thinners considering your history of the irregular heart rate and stents. It is very important that you follow up with your solution lead within a week. You should also follow up with your primary care physician within one week. You should follow up with your urologist who can discuss with you further management of your enlarged prostate and blood in your urine. Please continue taking all of your home meds as you were prior to admission to the hospital. It is very important that if you have a rapid heart rate, palpitations, lightheadedness, any loss of consciousness, or chest pain, that you speak with your solution lead, call 911, or return to the Emergency Department immediately. Referrals: Joe Atkinson MD [Staff Physician] - 2 Weeks Tino Kaplan MD [Staff Physician] - 1 Week Disposition: HOME - Home Medications Comprehensive Discharge Medication List: Ambulatory Orders Amlodipine Bes/Olmesartan Med [[place]ri 5-20 mg Tablet] 1 each PO DAILY 05/08/18 Aspirin [ASA -] 81 mg PO DAILY 05/08/18 Finasteride 5 mg PO DAILY 05/08/18 Metoprolol Succinate 25 mg PO DAILY 05/08/18 Ranolazine [Ranexa] 500 mg PO BID 05/08/18 Silodosin [Rapaflo] 4 mg PO DAILY 05/08/18 This patient is new to me today: No Emergency Visit: Yes ED Registration Date: 05/08/18 Care time: The patient presented to the Emergency Department on the above date and was hospitalized for further evaluation of their emergent condition. Critical Care patient: No - Discharge Referral Referred to [facility] Med P.C[facility] No
[2018-05-09 15:00] VITALS: BP 157/76; PULSE 64; TEMP 98
[2018-05-09] MEDS: ASPIRIN 81 MG CHEWABLE TABLETS PO SCH (15:00)
[2018-05-09] MEDS: RANOLAZINE E.R. 500 MG TABLET (FP) PO SCH (15:00)
[2018-05-09] MEDS: ENOXAPARIN NA (PORCINE) 80 MG/0.8 ML DISP.SYRIN SQ SCH (15:00)
--- NOTE | 2018-05-09 21:47 | PN ---
Progress Note, Physician Chief Complaint: Pt A&Ox3; no palpitations or chest pain. History of Present Illness: 83 year old man (linsey Cramer) with history of DM2, COPD, CAD s/p PCI (), Afib (2014), GIB (2015) and pericardial effusion--> pericardial window (11/2011) , who presents from PCP after pre-op physical exam for potential prostate resection and found to be in A.fib w/ RVR. The patient denies any chest pain, palpitations, nausea, diaphoresis or lightheadedness. He denies any symptoms and states he feels fine. Per PCP - the patient has had palpitations for the past 6 months and dyspnea and fatigue for the past 6 months. PMHX: as in HPI PSHX: see below Meds: camilo, metoprolol, renexa, ASA, finesteride Allergies: NKDA Tob: 1-2 cigarettes/ day - Objective Vital Signs: Vital Signs Temperature 98 F 05/09/18 14:58 Pulse Rate 64 05/09/18 14:58 Respiratory Rate 18 05/09/18 14:58 Blood Pressure 157/76 05/09/18 14:58 O2 Sat by Pulse Oximetry (%) 98 05/08/18 22:00 Constitutional: Yes: No Distress Eyes: Yes: WNL HENT: Yes: WNL Neck: Yes: WNL Cardiovascular: Yes: Pulse Irregular Respiratory: Yes: WNL Gastrointestinal: Yes: WNL ...Rectal Exam: Yes: Deferred Genitourinary: No: Anuria Musculoskeletal: Yes: Joint Stiffness Extremities: Yes: WNL Edema: No Peripheral Pulses WNL: Yes Integumentary: Yes: WNL Neurological: Yes: WNL Psychiatric: Yes: WNL Labs: CBC, BMP 05/09/18 05:30 05/09/18 05:30 Abnormal Lab Results 05/09/18 05/09/18 05/09/18 00:01 05:30 05:30 WBC 3.5 L MCHC 31.5 L RDW 16.9 H Absolute Neuts (auto) 1.3 L Neutrophils % 37.2 L D Lymphocytes % 43.0 H Monocytes % 12.0 H Eosinophils % 7.0 H D Chloride 108 H Anion Gap 7 L Triglycerides 190 H Total LDL Cholesterol 104 H HDL Cholesterol 25 L D Ur Leukocyte Esterase 1+ H Problem List - Problems (1) Atrial fibrillation with RVR Assessment/Plan: On metoprolol for HR control ((Hx COPD; assure pt does not have bronchial asthma ). Pt says he has been on ASA. With AF and his [id number] score, he should be on warfarin or a NOAC, but gives hx GI bleed in the past. F/u GI and hematology workup. Hx coronary stent a few years ago; continue ASA. Stress MIBI negative today; f/u pt as outpatient, from cardiac perspective. Code(s): I48.91 - UNSPECIFIED ATRIAL FIBRILLATION (2) Acute exacerbation of chronic obstructive pulmonary disease Code(s): J44.1 - CHRONIC OBSTRUCTIVE PULMONARY DISEASE W (ACUTE) EXACERBATION (3) Tobacco dependence Assessment/Plan: the importance of smoking cessation was discussed. Code(s): F17.200 - NICOTINE DEPENDENCE, UNSPECIFIED, UNCOMPLICATED (4) COPD (chronic obstructive pulmonary disease) Assessment/Plan: mild COPD on 2016 CT chest; recommend f/u study, in view of continued tobacco use. Code(s): J44.9 - CHRONIC OBSTRUCTIVE PULMONARY DISEASE, UNSPECIFIED (5) CAD (coronary artery disease) Assessment/Plan: Stress MIBI today: negative for myocardial ischemia. f/u record (hx CAD-->coronary stent by Dr. Godinez several years ago). F/u lipids; statin. F/u pulmonary w/u (COPD). Encourage tobacco cessation. Code(s): I25.10 - ATHSCL HEART DISEASE OF [place] CORONARY ARTERY W/O ANG PCTRS (6) [place] cardiac risk >20% in next 10 years Assessment/Plan: Stress MIBI today: no myocardial ischemia. Aggressive lipid and BP control. Smoking cessation. Increase daily exercise. Heart-healthy diet. Code(s): Z91.89 - OTH PERSONAL RISK FACTORS, NOT ELSEWHERE CLASSIFIED
[2018-05-09] MEDS ORDERED: ATORVASTATIN CA 20 MG TABLET (FP) PO SCH (22:00)
[2018-05-09] MEDS ORDERED: METOPROLOL TARTRATE 25 MG TABLET (FP) PO SCH (22:00)
== END 2018-05-09 18:00 | disposition home or self-care (01) | DRG 309 ==
LOC: JER 12:53 → JERBED 15:11 → INTOOBSV 15:11 → UNDOADMOB 15:11 → J4W 16:55 → JERBED 17:06 → J4W 17:06 → OBSVTOIN 17:13
PROVIDERS: ADMIT Hospitalist; ATTEND Hospitalist
DX: I48.0 Paroxysmal atrial fibrillation (principal); I50.32 Chronic diastolic (congestive) heart failure; I11.0 Hypertensive heart disease with heart failure; J44.9 Chronic obstructive pulmonary disease, unspecified; E11.9 Type 2 diabetes mellitus without complications; Z98.61 Coronary angioplasty status; I25.10 Atherosclerotic heart disease of native coronary artery without angina pectoris; I45.10 Unspecified right bundle-branch block; E78.5 Hyperlipidemia, unspecified; N40.0 Benign prostatic hyperplasia without lower urinary tract symptoms; F17.210 Nicotine dependence, cigarettes, uncomplicated; D64.9 Anemia, unspecified; I34.0 Nonrheumatic mitral (valve) insufficiency
CPT/HCPCS: 36415; 71045-TC-FY; 78452-TC; 80048; 80053; 80061; 81003; 81015; 82550; 83721; 83735; 84100; 84443; 84484; 85025; 87086; 93005; 93010; 93017; 93306-TC; 99283-25; A9502; G0378; J2785; J7030

== ENCOUNTER 2018-12-10 13:31 | Inpatient (IN) | payer MEDICARE, OTHER ==
--- NOTE | 2018-12-10 14:33 | PDOC ---
History of Present Illness - General Chief Complaint: Lightheaded Stated Complaint: RT LEG NUMBNESS Time Seen by Provider: 12/10/18 14:29 - History of Present Illness Initial Comments: 12/10/18 14:32 Mr. Puentes is an 83 yo male w/ pmh of COPD, CAD (s/p PCI), afib (on ASA only as prior GI bleed), and pericardial effusion requiring pericardial window (11/2011) who presents for evaluation of 1 week history of bilateral leg numbness he describes as a throbbing sensation w/ heat in his legs. Pain is worse when he walks around and includes dyspnea on exertion. Patient reports he has previously had stents placed in his legs bilaterally for "not enough bloodflow" although he cannot report where in the legs. Patient was a smoker until approximately a year ago. The patient denies chest pain, headache and dizziness. Denies fever, chills, nausea, vomit, diarrhea and constipation. Denies dysuria, frequency, urgency and hematuria. Past History - Past Medical History Allergies/Adverse Reactions: Allergies Allergy/AdvReac Type Severity Reaction Status Date / Time No Known Allergies Allergy Verified 12/10/18 13:49 Home Medications: Ambulatory Orders Amlodipine Bes/Olmesartan Med [Terri 5-20 mg Tablet] 1 each PO DAILY 05/08/18 Aspirin [ASA -] 81 mg PO DAILY 05/08/18 Finasteride 5 mg PO DAILY 05/08/18 Metoprolol Succinate 25 mg PO DAILY 05/08/18 Ranolazine [Ranexa] 500 mg PO BID 05/08/18 Silodosin [Rapaflo] 4 mg PO DAILY 05/08/18 Cardiac Disorders: Yes (cad, stents, window) COPD: Yes CHF: Yes (+/- ble edema) DVT: No HTN: Yes Hypercholesterolemia: Yes - Surgical History Abdominal Surgery: Yes (L INGUINAL HERNIA REPAIR) Cardiac Surgery: Yes (STENT 1 CARDIAC, 1 LOWER EXTREMITY, FLUID REMOVED FROM AROUND HEART) - Immunization History Immunization Up to Date: Yes - Suicide/Smoking/Psychosocial Hx Smoking Status: Yes Smoking History: Former smoker Have you smoked in the past 12 months: Yes Number of Cigarettes Smoked Daily: 3 If you are a former smoker, when did you quit?: 6 months ago Information on smoking cessation initiated: No Hx Alcohol Use: No Drug/Substance Use Hx: No Substance Use Type: None Hx Substance Use Treatment: No Review of Systems - Review of Systems Comments:: 12/10/18 14:33 GENERAL/CONSTITUTIONAL: No fever or chills. No weakness. HEAD, EYES, EARS, NOSE AND THROAT: No change in vision. No ear pain or discharge. No sore throat. CARDIOVASCULAR: +Dyspnea on exertion as described. No chest pain RESPIRATORY: No cough, wheezing, or hemoptysis. GASTROINTESTINAL: No nausea, vomiting, diarrhea or constipation. GENITOURINARY: No dysuria, frequency, or change in urination. MUSCULOSKELETAL: +JOSE leg pain as described. No joint or muscle swelling or pain. No neck or back pain. SKIN: No rash NEUROLOGIC: No headache, vertigo, loss of consciousness, or change in strength/ sensation. ENDOCRINE: No increased thirst. No abnormal weight change HEMATOLOGIC/LYMPHATIC: No anemia, easy bleeding, or history of blood clots. ALLERGIC/IMMUNOLOGIC: No hives or skin allergy. *Physical Exam - Vital Signs Last Vital Signs Temp Pulse Resp BP Pulse Ox 98.3 F 83 18 171/72 H 99 12/10/18 13:43 12/10/18 13:43 12/10/18 13:43 12/10/18 13:43 12/10/18 13:43 - Physical Exam Comments: 12/10/18 14:33 GENERAL: Awake, alert, and fully oriented, in no acute distress HEAD: No signs of trauma, normocephalic, atraumatic EYES: PERRLA, EOMI, sclera anicteric, conjunctiva clear ENT: Auricles normal inspection, hearing grossly normal, nares patent, oropharynx clear without exudates. Moist mucosa NECK: Normal ROM, supple, no lymphadenopathy, JVD, or masses LUNGS: No distress, speaks full sentences, clear to auscultation bilaterally HEART: +Rhythm c/w afib, Regular rate, normal S1 and S2, no murmurs, rubs or gallops, peripheral pulses normal and equal bilaterally. ABDOMEN: Soft, nontender, normoactive bowel sounds. No guarding, no rebound. No masses EXTREMITIES: +Pulse appreciated on L foot, not on R. Pulses appreciated at ankles JOSE. Otherwise normal inspection, normal range of motion, no edema. No clubbing or cyanosis. NEUROLOGICAL: Cranial nerves II through XII grossly intact. Normal speech, normal gait, no focal sensorimotor deficits SKIN: Warm, Dry, normal turgor, no rashes or lesions noted. ED Treatment Course - LABORATORY CBC & Chemistry Diagram: 12/10/18 15:21 12/10/18 15:21 Medical Decision Making - Medical Decision Making 12/10/18 15:36 Mr. Puentes is an 83 yo male w/ pmh as described who presents for evaluation of symptoms concerning for diabetic neuropathy vs. PAD vs. MSK injury. Patient will be evaluated with US JOSE for r/o ischemic disease as well as laboratory evaluation as below. EKG also ordered (non-contributory). 12/10/18 17:42 US Significant for decreased monophasic flow w/in posterior tibial arteries JOSE. CT ordered for further evaluation. 12/10/18 21:[address] significant for 50% stenosis near distal aspect of right common iliac artery 2. Elongated area of severe in-stent stenosis within distal aspect of right superficial femoral artery 3. Two vessel runoff on the right 4. 40% stenosis at the distal aspect of the left common iliac artery 5. Elongated area of severe in-stent stenosis within the distal aspect of the left superficial femoral artery 6. At least two vessel runoff on the left 7. Small hiatal hernia 8. Enlarged prostate CT discussed with Dr. Joy who requests admission and will follow in hospital. Patient admitted to inpatient team. Laboratory Results - last 24 hr 12/10/18 12/10/18 12/10/18 15:21 15:21 15:21 WBC 3.6 L RBC 4.92 Hgb 13.3 Hct 40.8 MCV 82.9 MCH 27.0 MCHC 32.6 RDW 14.4 D Plt Count 202 MPV 8.5 Absolute Neuts (auto) 2.0 Neutrophils % 56.2 D Lymphocytes % 31.1 D Monocytes % 10.0 Eosinophils % 2.1 Basophils % 0.6 Nucleated RBC % 0 PT with INR 12.80 INR 1.08 PTT (Actin FS) 32.2 Sodium 135 L Potassium 4.4 Chloride 102 Carbon Dioxide 29 Anion Gap 4 L BUN 13 Creatinine 0.9 Creat Clearance w eGFR 80.39 Random Glucose 92 Calcium 8.6 Total Bilirubin 0.3 AST 24 ALT 23 Alkaline Phosphatase 83 Creatine Kinase 223 Creatine Kinase Index 2.0 CK-MB (CK-2) 4.6 H Troponin I < 0.02 Total Protein 7.5 Albumin 3.4 Blood Type Antibody Screen 12/10/18 15:21 WBC RBC Hgb Hct MCV MCH MCHC RDW Plt Count MPV Absolute Neuts (auto) Neutrophils % Lymphocytes % Monocytes % Eosinophils % Basophils % Nucleated RBC % PT with INR INR PTT (Actin FS) Sodium Potassium Chloride Carbon Dioxide Anion Gap BUN Creatinine Creat Clearance w eGFR Random Glucose Calcium Total Bilirubin AST ALT Alkaline Phosphatase Creatine Kinase Creatine Kinase Index CK-MB (CK-2) Troponin I Total Protein Albumin Blood Type A POSITIVE Antibody Screen Negative *DC/Admit/Observation/Transfer Diagnosis at time of Disposition: Arterial stenosis, Lower extremity pain, bilateral - Discharge Dispostion Decision to Admit order: Yes - Referrals Referrals: Tino Kaplan MD [Primary Care Provider] - - Patient Instructions - Post Discharge Activity
--- NOTE | 2018-12-10 15:41 | PDOC ---
Documentation entered by Sue Foreman SCRIBE, acting as scribe for Candida Michel MD. Attending Attestation - Resident Resident Name: Beni Novak - ED Attending Attestation I have performed the following: I have examined & evaluated the patient, The case was reviewed & discussed with the resident, I agree w/resident's findings & plan - HPI HPI: 12/10/18 15:09 The patient is a 83 year old male with a PMH of COPD, CAD s/p PCI, afib on aspirin, and PE who presents to the ER for bilateral leg numbness and warmth for the past week. He notes the bilateral leg numbness is exacerbated with walking. Patient is also complaining of dyspnea on exertion. The patient denies chest pain, headache and dizziness. Denies fever, chills, nausea, vomit, diarrhea and constipation. Denies dysuria, frequency, urgency and hematuria. Allergies: NKDA Surgeries: PCI Social Hx: Former smoker - Physicial Exam PE: GENERAL: Awake, alert, and fully oriented, in no acute distress HEAD: No signs of trauma EYES: PERRLA, EOMI, sclera anicteric, conjunctiva clear ENT: Auricles normal inspection, hearing grossly normal, nares patent, oropharynx clear without exudates. Moist mucosa NECK: Normal ROM, supple, no lymphadenopathy, JVD, or masses LUNGS: Breath sounds equal, clear to auscultation bilaterally. No wheezes, and no crackles HEART: Regular rate and rhythm, normal S1 and S2, no murmurs, rubs or gallops ABDOMEN: Soft, nontender, normoactive bowel sounds. No guarding, no rebound. No masses EXTREMITIES: Normal range of motion, no edema. No clubbing or cyanosis. No cords, erythema, or tenderness. +Faint DP pulse on L, no palpable DP pulse on R. NEUROLOGICAL: Cranial nerves II through XII grossly intact. Normal speech. Motor and sensation intact SKIN: Warm, Dry, normal turgor, no rashes or lesions noted. - Medical Decision Making Pt with history BLE stents presenting with claudication, L>R. Will obtain labs and CTA to evaluate the stents for patency. Candida Michel MD: This documentation has been prepared by the Ahsan nguyen Daisy, SCRIBE, under my direction and personally reviewed by me in its entirety. I confirm that the documentation accurately reflects all work, treatment, procedures, and medical decision making performed by me.
[2018-12-10 15:56] LABS: BASO % 0.6 % (0-2.0); EOS % 2.1 % (0-4.5); HEMATOCRIT 40.8 % (35.4-49); HEMOGLOBIN 13.3 GM/dL (11.7-16.9); LYMPH % 31.1 % (8-40); MCHC 32.6 g/dl (32.0-35.9); MEAN CELL VOLUME 82.9 fl (80-96); MEAN PLT VOLUME 8.5 fl (7.5-11.1); NEUT % 56.2 % (42.8-82.8); PLATELET COUNT 202 K/MM3 (134-434); RBC 4.92 M/mm3 (4.00-5.60); RDW 14.4 % (11.9-15.9); WHITE BLOOD COUNT 3.6 K/mm3 (4.0-10.0)
[2018-12-10 16:14] LABS: INR 1.08 (0.83-1.09); PROTHROMBIN TIME (PATIENT) 12.8 SEC (9.7-13.0)
[2018-12-10 16:17] LABS: ACTIVATED PTT 32.2 SECONDS (25.2-36.5)
[2018-12-10 16:43] LABS: ALBUMIN 3.4 g/dl (3.4-5.0); ALK PHOS 83 U/L (45-117); ANION GAP 4 MMOL/L (8-16); BILIRUBIN,TOTAL 0.3 mg/dL (0.2-1); BLOOD UREA NITROGEN 13 mg/dL (7-18); CALCIUM 8.6 mg/dL (8.5-10.1); CHLORIDE 102 mmol/L (98-107); CO2 29 mmol/L (21-32); CREATININE 0.9 mg/dL (0.55-1.3); GLUCOSE,RANDOM 92 mg/dL (74-106); POTASSIUM 4.4 mmol/L (3.5-5.1); SGOT/AST 24 U/L (15-37); SGPT/ALT 23 U/L (13-61); SODIUM 135 mmol/L (136-145); TOT PROT 7.5 g/dl (6.4-8.2)
--- NOTE | 2018-12-10 21:21 | CON.CARD ---
Consult Consult Specialty:: Cardiology Reason for Consultation:: PAD leg pain - History of Present Illness History of Present Illness: Mr. Puentes is an 83 yo male w/ pmh of COPD, CAD (s/p PCI), afib (on ASA only as prior GI bleed), and pericardial effusion requiring pericardial window (11/2011) who presents for evaluation of 1 week history of bilateral leg numbness he describes as a throbbing sensation w/ heat in his legs. Pain is worse when he walks around and includes dyspnea on exertion. Patient reports he has previously had stents placed in his legs bilaterally for "not enough bloodflow" although he cannot report where in the legs. Patient was a smoker until approximately a year ago. The patient denies chest pain, headache and dizziness. Denies fever, chills, nausea, vomit, diarrhea and constipation. Denies dysuria, frequency, urgency and hematuria. - History Source History Provided By: Patient, Medical Record - Past Medical History Cardio/Vascular: Yes: AFIB, CAD, CHF, HTN, Hyperlipdemia Pulmonary: Yes: COPD Gastrointestinal: Yes: GERD Endocrine: Yes: Diabetes Mellitus - Past Surgical History Past Surgical History: Yes: Hernia Repair, Stent (cardiac/lower extremity) - Alcohol/Substance Use Hx Alcohol Use: No History of Substance Use: reports: None - Smoking History Smoking history: Former smoker Have you smoked in the past 12 months: Yes Aproximately how many cigarettes per day: 3 If you are a former smoker, when did you quit?: 6 months ago - Social History History of Recent Travel: No Home Medications - Allergies Allergies/Adverse Reactions: Allergies Allergy/AdvReac Type Severity Reaction Status Date / Time No Known Allergies Allergy Verified 12/10/18 13:49 - Home Medications Home Medications: Ambulatory Orders Amlodipine Bes/Olmesartan Med [Terri 5-20 mg Tablet] 1 each PO DAILY 05/08/18 Aspirin [ASA -] 81 mg PO DAILY 05/08/18 Finasteride 5 mg PO DAILY 05/08/18 Metoprolol Succinate 25 mg PO DAILY 05/08/18 Ranolazine [Ranexa] 500 mg PO BID 05/08/18 Silodosin [Rapaflo] 4 mg PO DAILY 05/08/18 Review of Systems - Review of Systems Constitutional: reports: No Symptoms Eyes: reports: No Symptoms HENT: reports: No Symptoms Neck: reports: No Symptoms Cardiovascular: reports: Other (claudications) Gastrointestinal: reports: No Symptoms Genitourinary: reports: No Symptoms Breasts: reports: No Symptoms Reported Musculoskeletal: reports: No Symptoms Integumentary: reports: No Symptoms Neurological: reports: No Symptoms Endocrine: reports: No Symptoms Hematology/Lymphatic: reports: No Symptoms Psychiatric: reports: No Symptoms Vital Signs: Vital Signs Temperature 98.3 F 12/10/18 13:43 Pulse Rate 83 12/10/18 13:43 Respiratory Rate 18 12/10/18 13:43 Blood Pressure 171/72 H 12/10/18 13:43 O2 Sat by Pulse Oximetry (%) 99 12/10/18 15:45 Constitutional: Yes: Well Nourished, No Distress, Calm Eyes: Yes: WNL, Conjunctiva Clear, EOM Intact HENT: Yes: WNL, Atraumatic, Normocephalic Neck: Yes: WNL, Supple, Trachea Midline Respiratory: Yes: WNL, Regular, CTA Bilaterally Gastrointestinal: Yes: WNL, Normal Bowel Sounds Renal/: Yes: WNL Cardiovascular: Yes: WNL, Regular Rate and Rhythm Musculoskeletal: Yes: WNL Extremities: Yes: WNL Peripheral Pulses: 1+ Left Popliteal, 1+ Right Popliteal, 1+ Left Doralis Pedis , 1+ Right Dorsalis Pedis Integumentary: Yes: WNL Neurological: Yes: WNL, Alert, Oriented ...Motor Strength: WNL Psychiatric: Yes: WNL, Alert, Oriented - Other Data Labs, Other Data: CBC, BMP 12/10/18 15:21 12/10/18 15:21 INR, PTT INR 1.08 (0.83-1.09) 12/10/18 15:21 Troponin, BNP 12/10/18 15:21 Troponin I < 0.02 Troponin, BNP 12/10/18 15:21 Troponin I < 0.02 Imaging - Results Chest X-ray: Image Reviewed (no i/e) EKG: Image Reviewed (sr bifascicular block) Problem List - Problems (1) Arterial stenosis Code(s): I77.1 - STRICTURE OF ARTERY (2) Lower extremity pain, bilateral Code(s): M79.604 - PAIN IN RIGHT LEG; M79.605 - PAIN IN LEFT LEG (3) Acute exacerbation of chronic obstructive pulmonary disease Code(s): J44.1 - CHRONIC OBSTRUCTIVE PULMONARY DISEASE W (ACUTE) EXACERBATION (4) Acute kidney injury Code(s): N17.9 - ACUTE KIDNEY FAILURE, UNSPECIFIED (5) Anemia Code(s): D64.9 - ANEMIA, UNSPECIFIED (6) Anticoagulant long-term use Code(s): Z79.01 - FDC (CURRENT) USE OF ANTICOAGULANTS (7) Atrial fibrillation Code(s): I48.91 - UNSPECIFIED ATRIAL FIBRILLATION Qualifiers: Atrial fibrillation type: chronic Qualified Code(s): I48.2 - Chronic atrial fibrillation (8) Atrial fibrillation with RVR Code(s): I48.91 - UNSPECIFIED ATRIAL FIBRILLATION (9) Bronchitis Code(s): J40 - BRONCHITIS, NOT SPECIFIED ACUTE OR CHRONIC (10) CAD (coronary artery disease) Code(s): I25.10 - ATHSCL HEART DISEASE OF [place] CORONARY ARTERY W/O ANG PCTRS (11) CHF (congestive heart failure) Code(s): I50.9 - HEART FAILURE, UNSPECIFIED (12) COPD (chronic obstructive pulmonary disease) Code(s): J44.9 - CHRONIC OBSTRUCTIVE PULMONARY DISEASE, UNSPECIFIED (13) Coagulopathy Code(s): D68.9 - COAGULATION DEFECT, UNSPECIFIED (14) Community acquired pneumonia Code(s): J18.9 - PNEUMONIA, UNSPECIFIED ORGANISM (15) DM2 (diabetes mellitus, type 2) Code(s): E11.9 - TYPE 2 DIABETES MELLITUS WITHOUT COMPLICATIONS (16) [place] lesion (hemorrhagic) of stomach and duodenum Code(s): K31.82 - DIEULAFOY LESION (HEMORRHAGIC) OF STOMACH AND DUODENUM (17) Dizziness Code(s): R42 - DIZZINESS AND GIDDINESS (18) Euthyroid sick syndrome Code(s): E07.81 - SICK-EUTHYROID SYNDROME (19) [place] cardiac risk >20% in next 10 years Code(s): Z91.89 - OTH PERSONAL RISK FACTORS, NOT ELSEWHERE CLASSIFIED (20) GI bleed Code(s): K92.2 - GASTROINTESTINAL HEMORRHAGE, UNSPECIFIED (21) Hypertension Code(s): I10 - ESSENTIAL (PRIMARY) HYPERTENSION (22) Loss of consciousness Code(s): R40.20 - UNSPECIFIED COMA (23) New onset atrial fibrillation Code(s): I48.91 - UNSPECIFIED ATRIAL FIBRILLATION (24) Paroxysmal atrial fibrillation Code(s): I48.0 - PAROXYSMAL ATRIAL FIBRILLATION (25) Peripheral vascular disease Code(s): I73.9 - PERIPHERAL VASCULAR DISEASE, UNSPECIFIED (26) Pneumonia Code(s): J18.9 - PNEUMONIA, UNSPECIFIED ORGANISM (27) Renal dysfunction Code(s): N28.9 - DISORDER OF KIDNEY AND URETER, UNSPECIFIED (28) Thyroiditis Code(s): E06.9 - THYROIDITIS, UNSPECIFIED (29) Tobacco dependence Code(s): F17.200 - NICOTINE DEPENDENCE, UNSPECIFIED, UNCOMPLICATED (30) Vertigo Code(s): R42 - DIZZINESS AND GIDDINESS Assessment/Plan PAD COPD, CAD (s/p PCI), afib (on ASA only as prior GI bleed), and pericardial effusion requiring pericardial window (11/2011) who presents for evaluation of 1 week history of bilateral leg numbness he describes as a throbbing sensation w/ heat in his legs. severe PAD multiple risk factors - Problems (1) Arterial stenosis Assessment/Plan: Discussed pt with his interventionalist, Dr. Roni Godinez: Hx cardiac 3VD: s/p RCA stent 2011, LAD stent 2012; was planned for PCI of 90% Cx lesions. PAD: s/p Right SFA stent 2010. Discussed with pt: plan for LE angi[facility] this [facility] at [facility]. Aggressive lipid control (f/o levels, and keep LDL < 70 mg/dL). Code(s): I77.1 - STRICTURE OF ARTERY (2) Acute exacerbation of chronic obstructive pulmonary disease Code(s): J44.1 - CHRONIC OBSTRUCTIVE PULMONARY DISEASE W (ACUTE) EXACERBATION (3) Atrial fibrillation Assessment/Plan: On metoprolol for HR control (change to ERE for once daily use, or make tartrate bid for better 24 hour coverage). On apixaban for anticoagulation. Code(s): I48.91 - UNSPECIFIED ATRIAL FIBRILLATION Qualifiers: Atrial fibrillation type: chronic Qualified Code(s): I48.2 - Chronic atrial fibrillation (4) DM2 (diabetes mellitus, type 2) Assessment/Plan: On ARB (HTN; CAD; DM). Statin (f/u lipid level, but use statin even if values are "normal"). Code(s): E11.9 - TYPE 2 DIABETES MELLITUS WITHOUT COMPLICATIONS (5) [place] cardiac risk >20% in next 10 years Code(s): Z91.89 - [facility] PERSONAL RISK FACTORS, NOT ELSEWHERE CLASSIFIED (6) Hypertension Code(s): I10 - ESSENTIAL (PRIMARY) HYPERTENSION (7) Paroxysmal atrial fibrillation Code(s): I48.0 - PAROXYSMAL ATRIAL FIBRILLATION (8) Peripheral vascular disease Code(s): I73.9 - PERIPHERAL VASCULAR DISEASE, UNSPECIFIED
--- NOTE | 2018-12-10 21:58 | HP ---
Admitting History and Physical - Primary Care Physician PCP: Tino Kaplan S - Admission Chief Complaint: Bilateral Leg Numbness and Pain History of Present Illness: This is a 83 y/o man with a significant medical history of COPD, HTN, HLD, PAD, CAD s/p PCI 2011, 2012, Afib (no AC), GI Bleed, Pericordial Window 2011 for Effusion. Who presents to the ED with b/l leg pain and numbness x 1 week. Patient reports having numbness and pain chronically when ambulating, but it was increasingly worse this past week. Patient reports that both legs feel numb like a "throbbing sensation with heat". Patient denies fever, chills, cough , dizziness, MUÑOZ, SOB, CP, palpitations, AP, N/V/D, constipation. History Source: Patient Limitations to Obtaining History: No Limitations - Past Medical History Cardiovascular: Yes: AFIB, CAD, CHF, HTN, Hyperlipdemia Pulmonary: Yes: COPD Gastrointestinal: Yes: GERD Heme/Onc: Yes: B12 Deficiency ((+) ) Endocrine: Yes: Diabetes Mellitus - Past Surgical History Past Surgical History: Yes: Hernia Repair, Stent (cardiac/lower extremity) - Smoking History Smoking history: Former smoker Have you smoked in the past 12 months: Yes Aproximately how many cigarettes per day: 3 If you are a former smoker, when did you quit?: 6 months ago - Alcohol/Substance Use Hx Alcohol Use: No History of Substance Use: reports: None - Social History ADL: Independent History of Recent Travel: No Home Medications - Allergies Allergies/Adverse Reactions: Allergies Allergy/AdvReac Type Severity Reaction Status Date / Time No Known Allergies Allergy Verified 12/10/18 13:49 - Home Medications Home Medications: Ambulatory Orders Amlodipine Bes/Olmesartan Med [Terri 5-20 mg Tablet] 1 each PO DAILY 05/08/18 Aspirin [ASA -] 81 mg PO DAILY 05/08/18 Finasteride 5 mg PO DAILY 05/08/18 Metoprolol Succinate 25 mg PO DAILY 05/08/18 Ranolazine [Ranexa] 500 mg PO BID 05/08/18 Silodosin [Rapaflo] 4 mg PO DAILY 05/08/18 Family Disease History - Family Disease History Family History: Unable to Obtain Review of Systems - Review of Systems Constitutional: reports: No Symptoms Eyes: reports: No Symptoms HENT: reports: No Symptoms Neck: reports: No Symptoms Cardiovascular: reports: No Symptoms Respiratory: reports: SOB on Exertion Gastrointestinal: reports: No Symptoms Genitourinary: reports: No Symptoms Breasts: reports: No Symptoms Reported Musculoskeletal: reports: Extremity Pain Integumentary: reports: No Symptoms Neurological: reports: Numbness, Parasthesia Endocrine: reports: No Symptoms Hematology/Lymphatic: reports: No Symptoms Psychiatric: reports: No Symptoms Pain Intensity: 6 Physical Examination Vital Signs: Vital Signs Temperature 98.3 F 12/10/18 13:43 Pulse Rate 83 12/10/18 13:43 Respiratory Rate 18 12/10/18 13:43 Blood Pressure 171/72 H 12/10/18 13:43 O2 Sat by Pulse Oximetry (%) 99 12/10/18 15:45 Constitutional: Yes: Mild Distress Eyes: Yes: WNL, Conjunctiva Clear, EOM Intact, PERRL HENT: Yes: WNL, Atraumatic, Normocephalic Neck: Yes: WNL, Supple, Trachea Midline Cardiovascular: Yes: Regular Rate and Rhythm, S1, S2 Respiratory: Yes: WNL, Regular, CTA Bilaterally Gastrointestinal: Yes: WNL, Normal Bowel Sounds, Soft Renal/: Yes: WNL Breast(s): Yes: WNL Musculoskeletal: Yes: WNL Extremities: Yes: WNL Edema: No Peripheral Pulses WNL: Yes Peripheral Pulses: Left Doralis Pedis: 1+, Right Dorsalis Pedis: 0 Integumentary: Yes: WNL Neurological: Yes: WNL, Alert, Oriented, Cran Nerves II-XII Intact ...Motor Strength: WNL Psychiatric: Yes: WNL, Alert, Oriented Labs: CBC, BMP 12/10/18 15:21 12/10/18 15:21 Laboratory Results - last 24 hr 12/10/18 12/10/18 12/10/18 15:21 15:21 15:21 WBC 3.6 L RBC 4.92 Hgb 13.3 Hct 40.8 MCV 82.9 MCH 27.0 MCHC 32.6 RDW 14.4 D Plt Count 202 MPV 8.5 Absolute Neuts (auto) 2.0 Neutrophils % 56.2 D Lymphocytes % 31.1 D Monocytes % 10.0 Eosinophils % 2.1 Basophils % 0.6 Nucleated RBC % 0 PT with INR 12.80 INR 1.08 PTT (Actin FS) 32.2 Sodium 135 L Potassium 4.4 Chloride 102 Carbon Dioxide 29 Anion Gap 4 L BUN 13 Creatinine 0.9 Creat Clearance w eGFR 80.39 Random Glucose 92 Calcium 8.6 Total Bilirubin 0.3 AST 24 ALT 23 Alkaline Phosphatase 83 Creatine Kinase 223 Creatine Kinase Index 2.0 CK-MB (CK-2) 4.6 H Troponin I < 0.02 Total Protein 7.5 Albumin 3.4 Blood Type Antibody Screen 12/10/18 15:21 WBC RBC Hgb Hct MCV MCH MCHC RDW Plt Count MPV Absolute Neuts (auto) Neutrophils % Lymphocytes % Monocytes % Eosinophils % Basophils % Nucleated RBC % PT with INR INR PTT (Actin FS) Sodium Potassium Chloride Carbon Dioxide Anion Gap BUN Creatinine Creat Clearance w eGFR Random Glucose Calcium Total Bilirubin AST ALT Alkaline Phosphatase Creatine Kinase Creatine Kinase Index CK-MB (CK-2) Troponin I Total Protein Albumin Blood Type A POSITIVE Antibody Screen Negative Current Medications Generic Name Dose Route Start Last Admin Trade Name Freq PRN Reason Stop Dose Admin Aspirin 81 mg 12/11/18 10:00 Asa - PO DAILY [facility] Budesonide/Formoterol Fumarate 2 puff 12/11/18 10:00 Symbicort 160/4.5mcg - IH BID [facility] Finasteride 5 mg 12/11/18 10:00 Proscar - PO DAILY [facility] Heparin Sodium (Porcine) 5,000 unit 12/11/18 10:00 Heparin - SQ BID [facility] Metoprolol Tartrate 25 mg 12/11/18 10:00 Lopressor - PO DAILY [facility] Non-Formulary Medication 8 mg 12/11/18 10:00 Silodosin [Rapaflo] PO DAILY [facility] Ranolazine 500 mg 12/11/18 10:00 Ranexa - PO BID [facility] Valsartan 160 mg 12/11/18 10:00 Diovan - PO DAILY [facility] Intake & Output 12/08/18 12/09/18 12/10/18 12/11/18 23:59 23:59 23:59 23:59 Weight 74.843 kg Imaging - Results Chest X-ray: Report Reviewed, Image Reviewed Cat Scan: Image Reviewed Problem List - Problems (1) Arterial stenosis Assessment/Plan: hx PAD with stent placement US- significant for decreased monophasic flow within posterior tibial arteries bilaterally. CT- significant for 50% stenosis near distal aspect of right common iliac artery. Elongated area of severe in stent stenosis within distal aspect of right superficial femoral artery. Two vessel runoff on the right. 40% stenosis at the distal aspect of the left common iliac artery. Elongated area of severe in stent stenosis within the distal aspect of the left superficial femoral artery. At least two vessel runoff on the left. Small hiatal hernia, Enlarged prostate Appreciate Cardiology consult Neurovascular checks Continue cardiac monitoring CBC, BMP in am Continue Asa Code(s): I77.1 - STRICTURE OF ARTERY (2) Lower extremity pain, bilateral Assessment/Plan: see Above Code(s): M79.604 - PAIN IN RIGHT LEG; M79.605 - PAIN IN LEFT LEG (3) CAD (coronary artery disease) Assessment/Plan: stable Continue home meds EKG- reviewed Code(s): I25.10 - ATHSCL HEART DISEASE OF [place] CORONARY ARTERY W/O ANG PCTRS (4) CHF (congestive heart failure) Assessment/Plan: stable Chest Xray reviewed no acute process Continue home meds Code(s): I50.9 - HEART FAILURE, UNSPECIFIED (5) Paroxysmal atrial fibrillation Assessment/Plan: stable Code(s): I48.0 - PAROXYSMAL ATRIAL FIBRILLATION (6) COPD (chronic obstructive pulmonary disease) Assessment/Plan: controlled Continue Symbicort Duonebs prn Code(s): J44.9 - CHRONIC OBSTRUCTIVE PULMONARY DISEASE, UNSPECIFIED (7) Hypertension Assessment/Plan: sub optimal Monitor BP Continue Valsartan, Metoprolol with parameters Monitor renal function Code(s): I10 - ESSENTIAL (PRIMARY) HYPERTENSION Assessment/Plan This is a 83 y/o man with significant medical history of CAD s/p PCI, Afib on Asa, PAD, HTN, HLD, Pericardial Window 2011 for Effusion. Admitted to Telemetry for Acute Artery Stenosis for further evaluation of their emergent condition. Plan: See Problem List FEN Replete lytes prn Low Na Diet DVT ppx OOB Heparin SQ Code Status: Full Code Dispo: Requires Inpatient Care Visit type - Emergency Visit Emergency Visit: Yes ED Registration Date: 12/10/18 Care time: The patient presented to the Emergency Department on the above date and was hospitalized for further evaluation of their emergent condition. - New Patient This patient is new to me today: Yes Date on this admission: 12/10/18 - Critical Care Critical Care patient: No
[2018-12-11 03:38] VITALS: BMI 24.3
[2018-12-11] MEDS: HEPARIN NA (PORCINE) 5,000 UNITS/ML 1ML VIAL SQ SCH ×2 (09:32→21:54)
[2018-12-11] MEDS: ASPIRIN 81 MG CHEWABLE TABLETS PO SCH (09:32)
[2018-12-11] MEDS: RANOLAZINE E.R. 500 MG TABLET (FP) PO SCH ×2 (09:32→21:49)
[2018-12-11] MEDS: METOPROLOL TARTRATE 25 MG TABLET (FP) PO SCH (09:32)
[2018-12-11] MEDS: FINASTERIDE 5 MG TABLET (FP) PO SCH (09:32)
[2018-12-11] MEDS: VALSARTAN 160 MG TABLET (UD) PO SCH (09:33)
--- NOTE | 2018-12-11 10:01 | PN ---
Progress Note, Physician - Current Medication List Current Medications: Active Medications Aspirin (Asa -) 81 mg PO DAILY [facility] Last Admin: 12/11/18 09:32 Dose: 81 mg Budesonide/Formoterol Fumarate (Symbicort 160/4.5mcg -) 2 puff IH BID [facility] Finasteride (Proscar -) 5 mg PO DAILY [facility] Last Admin: 12/11/18 09:32 Dose: 5 mg Heparin Sodium (Porcine) (Heparin -) 5,000 unit SQ BID [facility] Last Admin: 12/11/18 09:32 Dose: 5,000 unit Metoprolol Tartrate (Lopressor -) 25 mg PO DAILY [facility] Last Admin: 12/11/18 09:32 Dose: 25 mg Non-Formulary Medication (Silodosin [Rapaflo]) 8 mg PO DAILY [facility] Ranolazine (Ranexa -) 500 mg PO BID [facility] Last Admin: 12/11/18 09:32 Dose: 500 mg Valsartan (Diovan -) 160 mg PO DAILY [facility] Last Admin: 12/11/18 09:33 Dose: 160 mg - Objective Vital Signs: Vital Signs Temperature 98 F 12/11/18 08:39 Pulse Rate 68 12/11/18 08:39 Respiratory Rate 20 12/11/18 08:39 Blood Pressure 119/70 12/11/18 08:41 O2 Sat by Pulse Oximetry (%) 98 12/11/18 05:00 Labs: CBC, BMP 12/10/18 15:21 12/10/18 15:21 INR, PTT INR 1.08 (0.83-1.09) 12/10/18 15:21 Assessment/Plan hx PAD with stent placement US- significant for decreased monophasic flow within posterior tibial arteries bilaterally. CT- significant for 50% stenosis near distal aspect of right common iliac artery. Elongated area of severe in stent stenosis within distal aspect of right superficial femoral artery. Two vessel runoff on the right. 40% stenosis at the distal aspect of the left common iliac artery. Elongated area of severe in stent stenosis within the distal aspect of the left superficial femoral artery. At least two vessel runoff on the left. Small hiatal hernia, Enlarged prostate Appreciate Cardiology consult Neurovascular checks Continue cardiac monitoring CBC, BMP in am Continue Asa vascular consult Code(s): I77.1 - STRICTURE OF ARTERY (2) Lower extremity pain, bilateral Assessment/Plan: see Above Code(s): M79.604 - PAIN IN RIGHT LEG; M79.605 - PAIN IN LEFT LEG (3) CAD (coronary artery disease) Assessment/Plan: stable Continue home meds EKG- reviewed Code(s): I25.10 - ATHSCL HEART DISEASE OF [place] CORONARY ARTERY W/O ANG PCTRS (4) CHF (congestive heart failure) Assessment/Plan: stable Chest Xray reviewed no acute process Continue home meds Code(s): I50.9 - HEART FAILURE, UNSPECIFIED (5) Paroxysmal atrial fibrillation Assessment/Plan: stable Code(s): I48.0 - PAROXYSMAL ATRIAL FIBRILLATION (6) COPD (chronic obstructive pulmonary disease) Assessment/Plan: controlled Continue Symbicort Duonebs prn Code(s): J44.9 - CHRONIC OBSTRUCTIVE PULMONARY DISEASE, UNSPECIFIED (7) Hypertension Assessment/Plan: sub optimal Monitor BP Continue Valsartan, Metoprolol with parameters Monitor renal function
--- NOTE | 2018-12-11 11:01 | EKG ---
Test Reason : Blood Pressure : / mmHG Vent. Rate : 078 BPM Atrial Rate : 078 BPM P-R Int : 154 ms QRS Dur : 128 ms QT Int : 426 ms P-R-T Axes : 049 -60 048 degrees QTc Int : 485 ms POOR DATA QUALITY, INTERPRETATION MAY BE ADVERSELY AFFECTED SINUS RHYTHM WITH PREMATURE ATRIAL COMPLEXES RIGHT BUNDLE BRANCH BLOCK LEFT ANTERIOR FASCICULAR BLOCK BIFASCICULAR BLOCK POSSIBLE INFERIOR INFARCT (CITED ON OR BEFORE 08-MAY-2018) ABNORMAL ECG WHEN COMPARED WITH ECG OF 08-MAY-2018 15:31, SINUS RHYTHM HAS REPLACED ATRIAL FIBRILLATION Confirmed by MD Jadon, Garth ([id number]) on 12/11/2018 11:01:02 AM Referred By: Confirmed By:Garth Diop MD
--- NOTE | 2018-12-11 13:19 | CONSULT ---
- Consultation REQUESTING PROVIDER: CONSULT REQUEST: We have been asked to surgically evaluate this patient for bilateral leg pain. PCP:Cinthia Fink HISTORY OF PRESENT ILLNESS: The patient is a 83 yo male with a history of PAD. He presents to the ER with the complaints of bilateral LE numbness and burning. He has had the complaints of RLE numbness for several months currently his bilateral symptoms intensified and he has developed left heel pain. He came to the ER for evaluation. His symptoms are unchanged with ambulation/rest. They remain constant. He denies any back pain. PMHx: afib, PAD to LE, former smoker, GI bleed PSHx: appendectomy, b/l LE vascular stents, cardiac stents, pericardial window Home Medications Medication Instructions Recorded Amlodipine Bes/Olmesartan Med 1 each PO DAILY 05/08/18 [Terri 5-20 mg Tablet] Aspirin [ASA -] 81 mg PO DAILY 05/08/18 Finasteride 5 mg PO DAILY 05/08/18 Metoprolol Succinate 25 mg PO DAILY 05/08/18 Ranolazine [Ranexa] 500 mg PO BID 05/08/18 Silodosin [Rapaflo] 4 mg PO DAILY 05/08/18 Allergies Allergy/AdvReac Type Severity Reaction Status Date / Time No Known Allergies Allergy Verified 12/10/18 13:49 REVIEW OF SYSTEMS: CONSTITUTIONAL: Absent: fever, chills RESPIRATORY: Absent: cough Present: SOB with exertion GASTROINTESTINAL: Absent: abdominal pain, abdominal distension, nausea, vomiting NEUROLOGIC: Absent: focal weakness to LE PHYSICAL EXAM: GENERAL: Awake, alert, and fully oriented, in no acute distress. ABDOMEN: Soft, nontender, not distended. LOWER EXTREMITIES: feet warm to touch b/l. LLE with palpable DP-RLE and LLE DP pulses, confirmed with doppler at bedside. No ulcers to feet/toes. No erythema or swelling. NEUROLOGICAL: Normal speech, gait not observed. PSYCH: Cooperative. Good eye contact. Appropriate mood and affect. Vital Signs Temperature 98 F 12/11/18 08:39 Pulse Rate 68 12/11/18 08:39 Respiratory Rate 20 12/11/18 09:00 Blood Pressure 119/70 12/11/18 08:41 O2 Sat by Pulse Oximetry (%) 98 12/11/18 09:00 Lab Results WBC 3.6 K/mm3 (4.0-10.0) L 12/10/18 15:21 RBC 4.92 M/mm3 (4.00-5.60) 12/10/18 15:21 Hgb 13.3 GM/dL (11.7-16.9) 12/10/18 15: Hct 40.8 % (35.4-49) 12/10/18 15: MCV 82.9 fl (80-96) 12/10/18: MCHC 32.6 g/dl (32.0-35.9) 12/10/18 15: RDW 14.4 % (11.9-15.9) D 12/10/18 15: Plt Count 202 K/MM3 (134-434) 12/10/18: Sodium 135 mmol/L (136-145) L 12/10/18: Potassium 4.4 mmol/L (3.5-5.1) 12/10/18: Chloride 102 mmol/L (98-107) 12/10/18: Carbon Dioxide 29 mmol/L (21-32) 12/10/18 15: Anion Gap 4 MMOL/L (8-16) L 12/10/18 15: BUN 13 mg/dL (7-18) 12/10/18: Creatinine 0.9 mg/dL (0.55-1.3) 12/10/18 15: Random Glucose 92 mg/dL (74-106) 12/10/18: Calcium 8.6 mg/dL (8.5-10.1) 12/10/18 Blood Type A POSITIVE 12/10/18 Antibody Screen Negative 12/10/18 15: INR 1.08 (0.83-1.09) 12/10/18 15:21 CTA 12/10: R SFA stent with segmental occlusive distal aspects of the stent. 2 vessel runoff to the leg with occlusion to the posterior tibial artery. Dorsal pedis and pedal vessels seen. L SFA stent. diminshed flow to left popliteal. 3 vessel runoff to leg without visualization of arch in foot. Problem List - Problems (1) Lower extremity pain, bilateral Assessment/Plan: Pt with chronic peripheral vascular disease on Aspirin 81mg daily. No evidence of acute ischmeia but with chronic peripheral progressive disease. He has a history of GI bleed and is not on any other antiplatelet. The patient is a former smoker. Case discussed with Dr. Hendrickson. He will review the CTA and determine if any further surgical intervention/angio is needed. Code(s): M79.604 - PAIN IN RIGHT LEG; M79.605 - PAIN IN LEFT LEG
[2018-12-11] MEDS ORDERED: PT OWN MED DRAWER 7, Y5N ONE (14:11)
--- NOTE | 2018-12-11 14:21 | PN ---
Progress Note, Physician Chief Complaint: Pt A&Ox3; c/o of right calf and foot numbness when walking in his room. History of Present Illness: The patient is a 83 year old male (linsey Cramer) with a PMH of COPD, CAD s/p PCI ( 2011: RCA; 2012: LCA; did not return for 90% Cx stenosis PCI) afib on aspirin, and PE who presents to the ER for bilateral leg numbness and warmth for the past week. He notes the bilateral leg numbness is exacerbated with walking. Patient is also complaining of dyspnea on exertion. The patient denies chest pain, headache and dizziness. Denies fever, chills, nausea, vomit, diarrhea and constipation. Denies dysuria, frequency, urgency and hematuria. Allergies: NKDA Surgeries: PCI Social Hx: Former smoker - Current Medication List Current Medications: Active Medications Aspirin (Asa -) 81 mg PO DAILY [facility] Last Admin: 12/11/18 09:32 Dose: 81 mg Budesonide/Formoterol Fumarate (Symbicort 160/4.5mcg -) 2 puff IH BID [facility] Finasteride (Proscar -) 5 mg PO DAILY [facility] Last Admin: 12/11/18 09:32 Dose: 5 mg Heparin Sodium (Porcine) (Heparin -) 5,000 unit SQ BID [facility] Last Admin: 12/11/18 09:32 Dose: 5,000 unit Metoprolol Tartrate (Lopressor -) 25 mg PO DAILY [facility] Last Admin: 12/11/18 09:32 Dose: 25 mg Non-Formulary Medication (Silodosin [Rapaflo]) 8 mg PO DAILY [facility] Ranolazine (Ranexa -) 500 mg PO BID [facility] Last Admin: 12/11/18 09:32 Dose: 500 mg Valsartan (Diovan -) 160 mg PO DAILY [facility] Last Admin: 12/11/18 09:33 Dose: 160 mg - Objective Vital Signs: Vital Signs Temperature 98 F 12/11/18 08:39 Pulse Rate 68 12/11/18 08:39 Respiratory Rate 20 12/11/18 09:00 Blood Pressure 119/70 12/11/18 08:41 O2 Sat by Pulse Oximetry (%) 98 12/11/18 09:00 Constitutional: Yes: Calm Eyes: Yes: WNL HENT: Yes: WNL Neck: Yes: WNL Cardiovascular: Yes: S1, S2 (split) Respiratory: Yes: Regular Gastrointestinal: Yes: Soft ...Rectal Exam: Yes: Deferred Genitourinary: No: Anuria Breast(s): Yes: WNL Musculoskeletal: Yes: Muscle Weakness Extremities: Yes: Cool Edema: No Peripheral Pulses WNL: No Peripheral Pulses: Left Doralis Pedis: 1+, Right Dorsalis Pedis: 1+, Left Femoral: 1+, Right Femoral: 1+ Integumentary: Yes: WNL Neurological: Yes: Alert, Oriented, Weakness Psychiatric: Yes: WNL Labs: CBC, BMP 12/10/18 15:21 12/10/18 15:21 INR, PTT INR 1.08 (0.83-1.09) 12/10/18 15:21 Abnormal Lab Results 12/10/18 15:21 Sodium 135 L Anion Gap 4 L CK-MB (CK-2) 4.6 H Problem List - Problems (1) Arterial stenosis Assessment/Plan: Discussed pt with his interventionalist, Dr. Roni Godinez: [place] cardiac 3VD: s/p RCA stent 2011, LAD stent 2012; was planned for PCI of 90% Cx lesions. PAD: s/p Right SFA stent 2010. Discussed with pt: plan for LE angiogram this week at [facility]. Aggressive lipid control (f/o levels, and keep LDL < 70 mg/dL). Code(s): I77.1 - STRICTURE OF ARTERY (2) Acute exacerbation of chronic obstructive pulmonary disease Code(s): J44.1 - CHRONIC OBSTRUCTIVE PULMONARY DISEASE W (ACUTE) EXACERBATION (3) Atrial fibrillation Assessment/Plan: On metoprolol for HR control (change to ERE for once daily use, or make tartrate bid for better 24 hour coverage). Code(s): I48.91 - UNSPECIFIED ATRIAL FIBRILLATION Qualifiers: Atrial fibrillation type: chronic Qualified Code(s): I48.2 - Chronic atrial fibrillation (4) DM2 (diabetes mellitus, type 2) Assessment/Plan: On ARB (HTN; CAD; DM). Statin (f/u lipid level, but use statin even if values are "normal"). Code(s): E11.9 - TYPE 2 DIABETES MELLITUS WITHOUT COMPLICATIONS (5) [place] cardiac risk >20% in next 10 years Assessment/Plan: To f/u with Dr. Godinez. Hx cardiac disease (#VD); s/p coronary stents. Code(s): Z91.89 - OTH PERSONAL RISK FACTORS, NOT ELSEWHERE CLASSIFIED (6) Hypertension Code(s): I10 - ESSENTIAL (PRIMARY) HYPERTENSION (7) Paroxysmal atrial fibrillation Code(s): I48.0 - PAROXYSMAL ATRIAL FIBRILLATION (8) Peripheral vascular disease Code(s): I73.9 - PERIPHERAL VASCULAR DISEASE, UNSPECIFIED
[2018-12-11 15:43] LABS: CHOLESTEROL 113 mg/dL (50-200); HDL CHOLESTEROL 43 mg/dL (40-60); TRIGLYCERIDES 67 mg/dL (0-150)
[2018-12-11] MEDS: BUDESONIDE/FORMETEROL FUMARATE 160/4.5 mcg INHALER IH SCH ×2 (16:14→21:50)
--- NOTE | 2018-12-11 18:58 | PN ---
Progress Note (short form) - Note Progress Note: Vascular Surgery Pt seen and examined. Pt with claudication symptoms of RLE CTA shows high grade stenosis of left SFA stent. Will need angioplasty Please clear from cardiology standpoint. Will do th morning. Giancarlo Hendrickson DO
[2018-12-11] MEDS ORDERED: ACETAMINOPHEN 1000 MG/100 ML VIAL (NON FORMULARY) IVPB ONE (21:00)
--- NOTE | 2018-12-12 07:35 | SPA.PREOP ---
- PRE-OP NOTE Dx: Claudication; high grade stenosis of left SFA stent. Planned Procedure: CO2 Angio Surgeon: Giancarlo Hendrickson Last Vital Signs Temp Pulse Resp BP Pulse Ox 98.3 F 55 L 18 140/77 97 12/12/18 06:00 12/12/18 06:00 12/12/18 06:00 12/12/18 06:00 12/11/18 20:00 Lab Results WBC 3.6 K/mm3 (4.0-10.0) L 12/10/18 15:21 RBC 4.92 M/mm3 (4.00-5.60) 12/10/18 15:21 Hgb 13.3 GM/dL (11.7-16.9) 12/10/18 15:21 Hct 40.8 % (35.4-49) 12/10/18 15:21 MCV 82.9 fl (80-96) 12/10/18 15:21 MCHC 32.6 g/dl (32.0-35.9) 12/10/18 15: RDW 14.4 % (11.9-15.9) D 12/10/18 15:21 Plt Count 202 K/MM3 (134-434) 12/10/18 15:21 Sodium 135 mmol/L (136-145) L 12/10/18 15:21 Potassium 4.4 mmol/L (3.5-5.1) 12/10/18 15:21 Chloride 102 mmol/L (98-107) 12/10/18 15:21 Carbon Dioxide 29 mmol/L (21-32) 12/10/18 15:21 Anion Gap 4 MMOL/L (8-16) L 12/10/18 15:21 BUN 13 mg/dL (7-18) 12/10/18 15:21 Creatinine 0.9 mg/dL (0.55-1.3) 12/10/18 15:21 Random Glucose 92 mg/dL (74-106) 12/10/18 15:21 Calcium 8.6 mg/dL (8.5-10.1) 12/10/18 15:21 Blood Type A POSITIVE 12/10/18 15: Antibody Screen Negative 12/10/18 15:21 INR 1.08 (0.83-1.09) 12/10/18 15:21 - ASSESSMENT/PLAN 1. Make NPO after midnight except PO meds 2. GI/DVT PPX 3. Medical optimization / clearance 4. Consent to be obtained by surgeon after risks, benefits and alternatives discussed with patient and or Health Care Proxy. Problem List - Problems (1) Lower extremity pain, bilateral Code(s): M79.604 - PAIN IN RIGHT LEG; M79.605 - PAIN IN LEFT LEG (2) CAD (coronary artery disease) Code(s): I25.10 - ATHSCL HEART DISEASE OF [place] CORONARY ARTERY W/O ANG PCTRS (3) Hypertension Code(s): I10 - ESSENTIAL (PRIMARY) HYPERTENSION (4) Peripheral vascular disease Code(s): I73.9 - PERIPHERAL VASCULAR DISEASE, UNSPECIFIED Visit type - Case Type Case Type: ED Admission
[2018-12-12] MEDS: METOPROLOL TARTRATE 25 MG TABLET (FP) PO SCH ×2 (08:24→09:36)
[2018-12-12] MEDS: VALSARTAN 160 MG TABLET (UD) PO SCH ×2 (08:24→09:36)
[2018-12-12] MEDS: RANOLAZINE E.R. 500 MG TABLET (FP) PO SCH ×2 (09:29→21:40)
[2018-12-12] MEDS: FINASTERIDE 5 MG TABLET (FP) PO SCH (09:29)
[2018-12-12] MEDS: ASPIRIN 81 MG CHEWABLE TABLETS PO SCH (09:29)
[2018-12-12] MEDS: BUDESONIDE/FORMETEROL FUMARATE 160/4.5 mcg INHALER IH SCH ×2 (09:32→21:41)
[2018-12-12] MEDS: HEPARIN NA (PORCINE) 5,000 UNITS/ML 1ML VIAL SQ SCH ×2 (09:32→21:44)
--- NOTE | 2018-12-12 11:31 | PN ---
Progress Note, Physician History of Present Illness: Mr. Puentes is an 83 yo male w/ pmh of COPD, CAD (s/p PCI), afib (on ASA only as prior GI bleed), and pericardial effusion requiring pericardial window (11/2011) who presents for evaluation of 1 week history of bilateral leg numbness he describes as a throbbing sensation w/ heat in his legs. Pain is worse when he walks around and includes dyspnea on exertion. Patient reports he has previously had stents placed in his legs bilaterally for "not enough bloodflow" although he cannot report where in the legs. Patient was a smoker until approximately a year ago. The patient denies chest pain, headache and dizziness. Denies fever, chills, nausea, vomit, diarrhea and constipation. Denies dysuria, frequency, urgency and hematuria. - Current Medication List Current Medications: Active Medications Aspirin (Asa -) 81 mg PO DAILY [facility] Last Admin: 12/12/18 09:29 Dose: 81 mg Budesonide/Formoterol Fumarate (Symbicort 160/4.5mcg -) 2 puff IH BID [facility] Last Admin: 12/12/18 09:32 Dose: 2 puff Finasteride (Proscar -) 5 mg PO DAILY [facility] Last Admin: 12/12/18 09:29 Dose: 5 mg Heparin Sodium (Porcine) (Heparin -) 5,000 unit SQ BID [facility] Last Admin: 12/12/18 09:32 Dose: Not Given Metoprolol Tartrate (Lopressor -) 25 mg PO DAILY [facility] Last Admin: 12/12/18 09:36 Dose: Not Given Non-Formulary Medication (Silodosin [Rapaflo]) 8 mg PO DAILY [facility] Ranolazine (Ranexa -) 500 mg PO BID [facility] Last Admin: 12/12/18 09:29 Dose: 500 mg Valsartan (Diovan -) 160 mg PO DAILY [facility] Last Admin: 12/12/18 09:36 Dose: Not Given - Objective Vital Signs: Vital Signs Temperature 97.8 F 12/12/18 09:39 Pulse Rate 62 12/12/18 09:39 Respiratory Rate 18 12/12/18 09:39 Blood Pressure 151/82 12/12/18 09:39 O2 Sat by Pulse Oximetry (%) 97 12/11/18 20:00 Eyes: Yes: WNL, Conjunctiva Clear, EOM Intact HENT: Yes: WNL, Atraumatic, Normocephalic Neck: Yes: WNL, Supple, Trachea Midline Cardiovascular: Yes: WNL, Regular Rate and Rhythm Respiratory: Yes: WNL, Regular, CTA Bilaterally Gastrointestinal: Yes: WNL, Normal Bowel Sounds Genitourinary: Yes: WNL Musculoskeletal: Yes: WNL Extremities: Yes: WNL Edema: No Peripheral Pulses: Left Doralis Pedis: 1+, Right Dorsalis Pedis: 1+, Left Femoral: 1+, Right Femoral: 1+ Integumentary: Yes: WNL Neurological: Yes: WNL, Alert, Oriented ...Motor Strength: WNL Psychiatric: Yes: WNL Labs: CBC, BMP 12/10/18 15:21 12/10/18 15:21 INR, PTT INR 1.08 (0.83-1.09) 12/10/18 15:21 Problem List - Problems (1) Arterial stenosis Code(s): I77.1 - STRICTURE OF ARTERY (2) Lower extremity pain, bilateral Code(s): M79.604 - PAIN IN RIGHT LEG; M79.605 - PAIN IN LEFT LEG (3) Acute exacerbation of chronic obstructive pulmonary disease Code(s): J44.1 - CHRONIC OBSTRUCTIVE PULMONARY DISEASE W (ACUTE) EXACERBATION (4) Acute kidney injury Code(s): N17.9 - ACUTE KIDNEY FAILURE, UNSPECIFIED (5) Anemia Code(s): D64.9 - ANEMIA, UNSPECIFIED (6) Anticoagulant long-term use Code(s): Z79.01 - ENVIRONMENTAL REMEDIATION CONSULTANT (CURRENT) USE OF ANTICOAGULANTS (7) Atrial fibrillation Code(s): I48.91 - UNSPECIFIED ATRIAL FIBRILLATION Qualifiers: Atrial fibrillation type: chronic Qualified Code(s): I48.2 - Chronic atrial fibrillation (8) Atrial fibrillation with RVR Code(s): I48.91 - UNSPECIFIED ATRIAL FIBRILLATION (9) Bronchitis Code(s): J40 - BRONCHITIS, NOT SPECIFIED ACUTE OR CHRONIC (10) CAD (coronary artery disease) Code(s): I25.10 - ATHSCL HEART DISEASE OF [place] CORONARY ARTERY W/O ANG PCTRS (11) CHF (congestive heart failure) Code(s): I50.9 - HEART FAILURE, UNSPECIFIED (12) COPD (chronic obstructive pulmonary disease) Code(s): J44.9 - CHRONIC OBSTRUCTIVE PULMONARY DISEASE, UNSPECIFIED (13) Coagulopathy Code(s): D68.9 - COAGULATION DEFECT, UNSPECIFIED (14) Community acquired pneumonia Code(s): J18.9 - PNEUMONIA, UNSPECIFIED ORGANISM (15) DM2 (diabetes mellitus, type 2) Code(s): E11.9 - TYPE 2 DIABETES MELLITUS WITHOUT COMPLICATIONS (16) [place] lesion (hemorrhagic) of stomach and duodenum Code(s): K31.82 - DIEULAFOY LESION (HEMORRHAGIC) OF STOMACH AND DUODENUM (17) Dizziness Code(s): R42 - DIZZINESS AND GIDDINESS (18) Euthyroid sick syndrome Code(s): E07.81 - SICK-EUTHYROID SYNDROME (19) [place] cardiac risk >20% in next 10 years Code(s): Z91.89 - OT PERSONAL RISK FACTORS, NOT ELSEWHERE CLASSIFIED (20) GI bleed Code(s): K92.2 - GASTROINTESTINAL HEMORRHAGE, UNSPECIFIED (21) Hypertension Code(s): I10 - ESSENTIAL (PRIMARY) HYPERTENSION (22) Loss of consciousness Code(s): R40.20 - UNSPECIFIED COMA (23) New onset atrial fibrillation Code(s): I48.91 - UNSPECIFIED ATRIAL FIBRILLATION (24) Paroxysmal atrial fibrillation Code(s): I48.0 - PAROXYSMAL ATRIAL FIBRILLATION (25) Peripheral vascular disease Code(s): I73.9 - PERIPHERAL VASCULAR DISEASE, UNSPECIFIED (26) Pneumonia Code(s): J18.9 - PNEUMONIA, UNSPECIFIED ORGANISM (27) Renal dysfunction Code(s): N28.9 - DISORDER OF KIDNEY AND URETER, UNSPECIFIED (28) Thyroiditis Code(s): E06.9 - THYROIDITIS, UNSPECIFIED (29) Tobacco dependence Code(s): F17.200 - NICOTINE DEPENDENCE, UNSPECIFIED, UNCOMPLICATED (30) Vertigo Code(s): R42 - DIZZINESS AND GIDDINESS Assessment/Plan - Problems (1) Arterial stenosis Assessment/Plan: Discussed pt with his interventionalist, Dr. Roni Godinez: Hx cardiac 3VD: s/p RCA stent 2011, LAD stent 2012; was planned for PCI of 90% Cx lesions. PAD: s/p Right SFA stent 2010. Discussed with pt: plan for LE angiogram this week at [facility]. Aggressive lipid control (f/o levels, and keep LDL < 70 mg/dL). Code(s): I77.1 - STRICTURE OF ARTERY (2) Acute exacerbation of chronic obstructive pulmonary disease Code(s): J44.1 - CHRONIC OBSTRUCTIVE PULMONARY DISEASE W (ACUTE) EXACERBATION ((4) DM2 (diabetes mellitus, type 2) Assessment/Plan: On ARB (HTN; CAD; DM). Statin (f/u lipid level, but use statin even if values are "normal"). Code(s): E11.9 - TYPE 2 DIABETES MELLITUS WITHOUT COMPLICATIONS (5) [place] cardiac risk >20% in next 10 years Assessment/Plan: To f/u with Dr. Godinez. Hx cardiac disease (#VD); s/p coronary stents. Code(s): Z91.89 - OTH PERSONAL RISK FACTORS, NOT ELSEWHERE CLASSIFIED (6) Hypertension Code(s): I10 - ESSENTIAL (PRIMARY) HYPERTENSION (7) Paroxysmal atrial fibrillation Code(s): I48.0 - PAROXYSMAL ATRIAL FIBRILLATION (8) Peripheral vascular disease Code(s): I73.9 - PERIPHERAL VASCULAR DISEASE, UNSPECIFIED
--- NOTE | 2018-12-12 15:26 | PN ---
Progress Note, Physician Chief Complaint: Arterial Stenosis B/L leg numbness History of Present Illness: Previous notes and events reviewed awake and alert NAD denies complaints of chest pain or SOB patient is not cleared from cardiology standpoint for procedure in AM - Current Medication List Current Medications: Active Medications Aspirin (Asa -) 81 mg PO DAILY [facility] Last Admin: 12/12/18 09:29 Dose: 81 mg Budesonide/Formoterol Fumarate (Symbicort 160/4.5mcg -) 2 puff IH BID [facility] Last Admin: 12/12/18 09:32 Dose: 2 puff Finasteride (Proscar -) 5 mg PO DAILY [facility] Last Admin: 12/12/18 09:29 Dose: 5 mg Heparin Sodium (Porcine) (Heparin -) 5,000 unit SQ BID [facility] Last Admin: 12/12/18 09:32 Dose: Not Given Metoprolol Tartrate (Lopressor -) 25 mg PO DAILY [facility] Last Admin: 12/12/18 09:36 Dose: Not Given Non-Formulary Medication (Silodosin [Rapaflo]) 8 mg PO DAILY [facility] Ranolazine (Ranexa -) 500 mg PO BID [facility] Last Admin: 12/12/18 09:29 Dose: 500 mg Valsartan (Diovan -) 160 mg PO DAILY [facility] Last Admin: 12/12/18 09:36 Dose: Not Given - Objective Vital Signs: Vital Signs Temperature 97.8 F 12/12/18 09:39 Pulse Rate 62 12/12/18 09:39 Respiratory Rate 18 12/12/18 09:39 Blood Pressure 151/82 12/12/18 09:39 O2 Sat by Pulse Oximetry (%) 97 12/11/18 20:00 Constitutional: Yes: No Distress, Calm Eyes: Yes: Conjunctiva Clear HENT: Yes: Atraumatic Cardiovascular: Yes: Regular Rate and Rhythm Respiratory: Yes: Regular, CTA Bilaterally Gastrointestinal: Yes: Normal Bowel Sounds, Soft Musculoskeletal: Yes: WNL Extremities: Yes: WNL Edema: No Neurological: Yes: Alert, Oriented Psychiatric: Yes: Alert, Oriented Labs: CBC, BMP 12/10/18 15:21 12/10/18 15:21 INR, PTT INR 1.08 (0.83-1.09) 12/10/18 15:21 - ....Imaging Cat Scan: Report Reviewed Problem List - Problems (1) Arterial stenosis Assessment/Plan: -Cardiology on board -Aorta with LE runoff CTA shows RLE with 50% stenosis and 40% stenosis in LLE -vascular on board -PATIENT IS NOT CLEARED BY CARDIOLOGY FOR PROCEDURE IN AM -US shows decreased monophasic flow within posterior tibial arteries bilaterally Code(s): I77.1 - STRICTURE OF ARTERY (2) Atrial fibrillation Assessment/Plan: -tele monitoring -continue Metoprolol -cardiology on board Code(s): I48.91 - UNSPECIFIED ATRIAL FIBRILLATION Qualifiers: Atrial fibrillation type: chronic Qualified Code(s): I48.2 - Chronic atrial fibrillation (3) CAD (coronary artery disease) Assessment/Plan: -continue aspirin Code(s): I25.10 - ATHSCL HEART DISEASE OF [place] CORONARY ARTERY W/O ANG PCTRS (4) CHF (congestive heart failure) Assessment/Plan: -continue Ranexa -1L fluid restriction Code(s): I50.9 - HEART FAILURE, UNSPECIFIED (5) COPD (chronic obstructive pulmonary disease) Assessment/Plan: -Symbicort -O2 via [place] prn for SOB -keep SpO2 >90% Code(s): J44.9 - CHRONIC OBSTRUCTIVE PULMONARY DISEASE, UNSPECIFIED Assessment/Plan see problem list dvt ppx
[2018-12-13 06:45] LABS: HEMOGLOBIN 12.7 GM/dL (11.7-16.9); MCH 26.8 pg (25.7-33.7); MCHC 32.5 g/dl (32.0-35.9); MEAN CELL VOLUME 82.5 fl (80-96); MEAN PLT VOLUME 8.5 fl (7.5-11.1); PLATELET COUNT 162 K/MM3 (134-434); RBC 4.72 M/mm3 (4.00-5.60); RDW 14.5 % (11.9-15.9); WHITE BLOOD COUNT 3.3 K/mm3 (4.0-10.0)
[2018-12-13 07:17] LABS: ALBUMIN 2.9 g/dl (3.4-5.0); ALK PHOS 69 U/L (45-117); ANION GAP 3 MMOL/L (8-16); BILIRUBIN,TOTAL 0.3 mg/dL (0.2-1); BLOOD UREA NITROGEN 15 mg/dL (7-18); CALCIUM 8.5 mg/dL (8.5-10.1); CHLORIDE 106 mmol/L (98-107); CO2 28 mmol/L (21-32); GLUCOSE,RANDOM 105 mg/dL (74-106); POTASSIUM 4.2 mmol/L (3.5-5.1); SGOT/AST 15 U/L (15-37); SGPT/ALT 17 U/L (13-61); SODIUM 136 mmol/L (136-145); TOT PROT 6.6 g/dl (6.4-8.2)
[2018-12-13] MEDS ORDERED: TAMSULOSIN HCL 0.4 MG CAP PO SCH (08:30)
[2018-12-13 09:25] VITALS: BP 150/80; PULSE 53; TEMP 97.6
[2018-12-13] MEDS: HEPARIN NA (PORCINE) 5,000 UNITS/ML 1ML VIAL SQ SCH (09:55)
--- NOTE | 2018-12-13 09:55 | PN ---
Progress Note (short form) - Note Progress Note: Asked to see pt for cardiac clearance. Pt is well known to Dr. Jc as per EMR records. Please contact him and place new consult.
[2018-12-13] MEDS: RANOLAZINE E.R. 500 MG TABLET (FP) PO SCH (09:56)
[2018-12-13] MEDS: METOPROLOL TARTRATE 25 MG TABLET (FP) PO SCH (09:56)
[2018-12-13] MEDS: FINASTERIDE 5 MG TABLET (FP) PO SCH (09:56)
[2018-12-13] MEDS: ASPIRIN 81 MG CHEWABLE TABLETS PO SCH (09:56)
[2018-12-13] MEDS: VALSARTAN 160 MG TABLET (UD) PO SCH (09:57)
[2018-12-13] MEDS: BUDESONIDE/FORMETEROL FUMARATE 160/4.5 mcg INHALER IH SCH (10:00)
--- NOTE | 2018-12-13 13:29 | DS ---
Physical Examination Vital Signs: Vital Signs Temperature 97.6 F 12/13/18 09:24 Pulse Rate 53 L 12/13/18 09:24 Respiratory Rate 18 12/13/18 09:24 Blood Pressure 150/80 12/13/18 09:24 O2 Sat by Pulse Oximetry (%) 98 12/13/18 09:00 Constitutional: Yes: Calm Cardiovascular: Yes: Regular Rate and Rhythm, S1, S2 Respiratory: Yes: CTA Bilaterally Gastrointestinal: Yes: Normal Bowel Sounds, Soft Edema: No Neurological: Yes: Alert, Oriented Labs: CBC, BMP 12/13/18 05:30 12/13/18 05:30 Discharge Summary Reason For Visit: STENONSIS OF ARTERY,PAIN IN BOTH LOWER EXTREMITIES Current Active Problems Arterial stenosis (Acute) Lower extremity pain, bilateral (Acute) Other Procedures: arterial duples decrased monphasix flow noted in post tibial arteries bilaterally. cta runoff: athersclerolic changesd noted in righ- high grade stenosis Hospital Course: Primary Care Physician PCP: Tino Kaplan S - Admission Chief Complaint: Bilateral Leg Numbness and Pain History of Present Illness: This is a 83 y/o man with a significant medical history of COPD, HTN, HLD, PAD, CAD s/p PCI 2011, 2012, Afib (no AC), GI Bleed, Pericordial Window 2011 for Effusion. Who presents to the ED with b/l leg pain and numbness x 1 week. Patient reports having numbness and pain chronically when ambulating, but it was increasingly worse this past week. Patient reports that both legs feel numb like a "throbbing sensation with heat". Patient denies fever, chills, cough , dizziness, MUÑOZ, SOB, CP, palpitations, AP, N/V/D, constipation. admitted to telemetry Hx cardiac 3VD: s/p RCA stent 2011, LAD stent 2012; was planned for PCI of 90% Cx lesions. PAD: s/p Right SFA stent 2010. Aggressive lipid control (f/o levels, and keep LDL < 70 mg/dL seen by vascular team as well plan for LE normal angiogram this week at [facility]- awaiting bed placement for transfer ). Condition: Good - Instructions Disposition: TRANSFER ACUTE CARE/OTHER HOSP - Home Medications Comprehensive Discharge Medication List: Ambulatory Orders Amlodipine Bes/Olmesartan Med [Terri 5-20 mg Tablet] 1 each PO DAILY 09/11/18 Aspirin [ASA -] 81 mg PO DAILY 05/08/18 Finasteride 5 mg PO DAILY 05/08/18 Metoprolol Succinate 25 mg PO DAILY 05/08/18 Ranolazine [Ranexa] 500 mg PO BID 05/08/18 Silodosin [Rapaflo] 4 mg PO DAILY 05/08/18
== END 2018-12-13 15:32 | disposition short-term general hospital (02) | DRG 315 ==
LOC: JER 13:31 → JERBED 21:50 → J4W 12-11 03:08
PROVIDERS: ADMIT Family Medicine; ATTEND Family Medicine
DX: T82.856A Stenosis of peripheral vascular stent, initial encounter (principal); I45.2 Bifascicular block; I77.1 Stricture of artery; I11.0 Hypertensive heart disease with heart failure; I50.9 Heart failure, unspecified; J44.9 Chronic obstructive pulmonary disease, unspecified; I48.91 Unspecified atrial fibrillation; I25.10 Atherosclerotic heart disease of native coronary artery without angina pectoris; Z95.5 Presence of coronary angioplasty implant and graft; M79.604 Pain in right leg; M79.605 Pain in left leg; Z87.891 Personal history of nicotine dependence; E78.5 Hyperlipidemia, unspecified; N40.0 Benign prostatic hyperplasia without lower urinary tract symptoms; E11.9 Type 2 diabetes mellitus without complications; I73.9 Peripheral vascular disease, unspecified; D51.9 Vitamin B12 deficiency anemia, unspecified
CPT/HCPCS: 36415; 71045-TC-FY; 75635-TC; 80053; 80061; 82550; 82553; 83721; 84484; 85025; 85027; 85610; 85730; 86850; 86900; 86901; 93005; 93010; 93925-TC; 99283-25; J0131; J1644

== ENCOUNTER 2020-04-14 09:42 | Emergency (ER) | payer OTHER ==
[2020-04-14 09:49] VITALS: TEMP 98.3; BMI 23.6
--- NOTE | 2020-04-14 10:06 | PDOC ---
History of Present Illness - General Chief Complaint: Pain, Acute Stated Complaint: RT. 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 The pain is worse for the past few days and worse with walking, radiating to the R leg. The patient is passing gas and having normal bowel movements, No nausea, vomiting, no urinary changes. No other complaints. He had L hernia reparied > 15 years ago in [facility]. His PCP is Rosaura could not get in sooner due to covid. He took tylenol 500 at 0800 this AM. ROS GENERAL/CONSTITUTIONAL: No fever or chills. No weakness. HEAD, EYES, EARS, NOSE AND THROAT: No change in vision. No ear pain or discharge. No sore throat. CARDIOVASCULAR: No chest pain or shortness of breath RESPIRATORY: No cough, wheezing, or hemoptysis. GASTROINTESTINAL: No nausea, vomiting, diarrhea or constipation. GENITOURINARY: No dysuria, frequency, or change in urination. MUSCULOSKELETAL: No joint or muscle swelling or pain. No neck or back pain. SKIN: No rash NEUROLOGIC: No headache, vertigo, loss of consciousness, or change in strength/sensation. ENDOCRINE: No increased thirst. No abnormal weight change HEMATOLOGIC/LYMPHATIC: No anemia, easy bleeding, or history of blood clots. ALLERGIC/IMMUNOLOGIC: No hives or skin allergy. PE GENERAL: Awake, alert, and fully oriented, in no acute distress HEAD: No signs of trauma, normocephalic, atraumatic EYES: EOMI, sclera anicteric, conjunctiva clear ENT: oropharynx clear without exudates. Moist mucosa NECK: Normal ROM, supple LUNGS: No distress, speaks full sentences, clear to auscultation bilaterally HEART: Regular rate and rhythm, normal S1 and S2, no murmurs, rubs or gallops, peripheral pulses normal and equal bilaterally. ABDOMEN: Soft, nontender. No guarding, no rebound. No masses EXTREMITIES : Normal inspection, Normal range of motion, no edema. No clubbing or cyanosis. NEUROLOGICAL: Cranial nerves II through XII grossly intact. Normal speech, normal gait, no focal sensorimotor deficits SKIN: Warm, Dry, normal turgor, no rashes or lesions noted GENITAL: vertical lie of the testes, slight bulging noted in the R inguinal area on palpation Assessment and Plan 83 yo male w/ pmh of COPD, CAD (s/p PCI), afib (on ASA only as prior GI bleed), and pericardial effusion requiring pericardial window (11/2011) who presents with 5 months of R inguinal hernia pain. Consider inguinal hernia vs incarcerated vs strangulated hernia CT wnl labs wnl lactic negative D>C with outpt management Gayatri Miles, PGY3 Emergency Medicine 04/14/20 10:46 04/14/20 14:13 Past History - Medical History Allergies/Adverse Reactions: Allergies Allergy/AdvReac Type Severity Reaction Status Date / Time No Known Allergies Allergy Verified 04/14/20 09:47 Home Medications: Ambulatory Orders Amlodipine Bes/Olmesartan Med [Terri 5-20 mg Tablet] 1 each PO DAILY 05/08/18 Finasteride 5 mg PO DAILY 05/08/18 Ranolazine [Ranexa] 500 mg PO BID 05/08/18 Cephalexin Monohydrate [Keflex -] 500 mg PO QID 7 Days #28 capsule 04/14/20 Clopidogrel Bisulfate [Plavix -] 75 mg PO DAILY 04/14/20 Metoprolol Tartrate 25 mg PO DAILY 04/14/20 Valsartan 160 mg PO DAILY 04/14/20 Cardiac Disorders: Yes (cad, stents, pericardial window) COPD: Yes CHF: Yes (+/- ble edema) DVT: No GI Disorders: Yes (GI bleed) HTN: Yes Hypercholesterolemia: Yes - Surgical History Abdominal Surgery: Yes (L INGUINAL HERNIA REPAIR) Cardiac Surgery: Yes (STENT 1 CARDIAC, 1 LOWER EXTREMITY, FLUID REMOVED FROM AROUND HEART) - Immunization History Immunization Up to Date: Yes - Psycho-Social/Smoking History Smoking Status: Yes Smoking History: Former smoker Have you smoked in the past 12 months: No Number of Cigarettes Smoked Daily: 3 If you are a former smoker, when did you quit?: 6 months ago Information on smoking cessation initiated: No - Substance Abuse Hx (Audit-C & DAST Scrn) How often the patient has a drink containing alcohol: Never Score: In Men: 4 or > Positive; In Women: 3 or > Positive: 0 Screen Result (Pos requires Nsg. Audit-10AR): Negative In the last yr the pt used illegal drug/Rx for NonMed reason: No Score: Yes response is considered Positive: 0 Screen Result (Positive result requires Nsg. DAST-10): Negative *Physical Exam - Vital Signs Last Vital Signs Temp Pulse Resp BP Pulse Ox 98.3 F 59 L 20 143/84 100 04/14/20 09:47 04/14/20 09:47 04/14/20 09:47 04/14/20 09:47 04/14/20 09:47 ED Treatment Course - LABORATORY CBC & Chemistry Diagram: 04/14/20 10:50 04/14/20 10:50 Discharge - Discharge Information Problems reviewed: Yes Clinical Impression/Diagnosis: Inguinal hernia Condition: Stable Disposition: HOME - Additional Discharge Information Prescriptions: Cephalexin Monohydrate [Keflex -] 500 mg PO QID 7 Days #28 capsule - Follow up/Referral Referrals: Tino Kaplna MD [Primary Care Provider] - Heber Vega [Staff Physician] - Maggy Jha MD [Staff Physician] - - Patient Discharge Instructions Patient Printed Discharge Instructions: DI for Groin Hernia Additional Instructions: You were seen in the ER for complaints of R inguinal hernia pain Your labwork and CT were within normal You have a referral for General Surgery and should follow up within 1 week. Please follow up with your Family Doctor within 1 week. Return to the ER if you develop worsening pain, swelling, difficulty having a bowel movement, fevers or any other concerning symptoms. - Post Discharge Activity
[2020-04-14 11:19] LABS: BASO % 0.8 % (0-2.0); EOS % 6.6 % (0-4.5); HEMOGLOBIN 12.8 GM/dL (11.7-16.9); LYMPH % 28.3 % (8-40); MCH 25.7 pg (25.7-33.7); MEAN CELL VOLUME 80.3 fl (80-96); MEAN PLT VOLUME 8.3 fl (7.5-11.1); MONO % 13.2 % (3.8-10.2); NEUT % 51.1 % (42.8-82.8); PLATELET COUNT 197 K/MM3 (134-434); RBC 4.98 M/mm3 (4.00-5.60); RDW 15.2 % (11.9-15.9)
[2020-04-14 11:34] LABS: EPI CELLS 10 /uL (0-25.1); HYALINE CASTS 2 /uL (0-3.1); PH,URINE 8.5 (5.0-8.0); URINE APPEARANCE CLEAR; URINE BACTERIA 52 /uL (0-1359); URINE BILIRUBIN NEGATIVE (NEGATIVE); URINE COLOR DK YELLOW; URINE GLUCOSE (UA) NEGATIVE (NEGATIVE); URINE KETONE NEGATIVE (NEGATIVE); URINE LEUK ESTERASE TRACE (NEGATIVE); URINE NITRITE NEGATIVE (NEGATIVE); URINE PROTEIN TRACE (NEGATIVE); URINE RBC 15 /uL (0-23.9); URINE WBC 25 /uL (0-25.8)
[2020-04-14 11:35] LABS: ALBUMIN 3.5 g/dl (3.4-5.0); BILIRUBIN,TOTAL 0.4 mg/dL (0.2-1); BLOOD UREA NITROGEN 15.7 mg/dL (7-18); CALCIUM 8.8 mg/dL (8.5-10.1); CREATININE 1.2 mg/dL (0.55-1.3); POTASSIUM 5.1 mmol/L (3.5-5.1); TOT PROT 7.1 g/dl (6.4-8.2)
[2020-04-14] MEDS ORDERED: ACETAMINOPHEN 1000 MG/100 ML VIAL (NON FORMULARY) IVPB ONE (13:06)
[2020-04-14] MEDS ORDERED: CEFTRIAXONE 1 GM in DEXTROSE 5%-WATER - 100 ML IVPB ONE (13:06)
[2020-04-14] MEDS ORDERED: ACETAMINOPHEN INJECTION 100 ML IVPB ONE (13:12)
[2020-04-14] MEDS ORDERED: CEFTRIAXONE 1 GM/50 ML BAG ONE (13:12)
[2020-04-14] MEDS ORDERED: CEPHALEXIN MONOHYDRATE 500 MG CAPSULE (UD) PO ONE (13:35)
[2020-04-14] MEDS ORDERED: ACETAMINOPHEN 325 MG TABLET (FP) PO ONE (13:44)
[2020-04-14] MEDS ORDERED: CEPHALEXIN MONOHYDRATE 500 MG CAPSULE (UD) ONE (13:53)
[2020-04-14] MEDS ORDERED: ACETAMINOPHEN 325 MG TABLET (FP) ONE (13:53)
[2020-04-14 14:30] VITALS: BP 137/84; PULSE 63
--- NOTE | 2020-04-28 17:30 | PDOC ---
Documentation entered by Lidya Bennett SCRIBE, acting as scribe for Wenceslao Ferrell MD. Wenceslao Ferrell MD: This documentation has been prepared by the Donald nguyen Brenda, SCRIBE, under my direction and personally reviewed by me in its entirety. I confirm that the documentation accurately reflects all work, treatment, procedures, and medical decision making performed by me. Attending Attestation - Resident Resident Name: Gayatri Miles - ED Attending Attestation I have performed the following: I have examined & evaluated the patient, The case was reviewed & discussed with the resident, I agree w/resident's findings & plan, Exceptions are as noted - HPI HPI: 04/14/20 12:48 The patient is an 84 year old male with a significant PMH of COPD, CAD (s/p PCI), afib (on ASA only as prior GI bleed), and pericardial effusion who presents to the emergency department for evaluation of 5 months of a right inguinal hernia pain with worsening pain in the past few days. Patient notes the pain is worse with walking and now radiating to the right leg. Endorsing normal bowel movements and flatulence. The patient denies chest pain, shortness of breath, headache and dizziness. Denies fever, chills, nausea, vomiting, diarrhea and constipation. Denies dysuria, frequency, urgency and hematuria. Allergies: NKA Social history: No reported hx of tobacco use, alcohol use or illicit drug use. - Physicial Exam PE: 04/28/20 17:29 Vitals: Triage Vital signs reviewed General Appearance: No acute distress, well nourished well developed, Head: Atraumatic, Chest Wall: Nontender Cardiac: Regular rate and rhythym, no murmurs, no rubs, no gallops, Lungs: Clear to auscultation bilateral, good air movement bilaterally, Abdomen: Soft, non distended, normal bowel sounds, Tenderness to palpation over the right inguinal region hernia appreciated not entirely reducible Extremities: Full range of motion to all extremities, no cyanosis, clubbing, or edema Skin: Warm and dry, no rashes or lesions, no rash, no petechiae - Medical Decision Making 04/28/20 17:28 83 yo male w/ pmh of COPD, CAD (s/p PCI), afib (on ASA only as prior GI bleed), and pericardial effusion requiring pericardial window (11/2011) who presents with 5 months of R inguinal hernia pain. Consider inguinal hernia vs incarcerated vs strangulated hernia Will CT observe and reassess Reevaluation patient feels better CAT scan with no evidence of incarcerated hernia Patient provided with surgery as outpatient follow-up Findings, need for follow-up and strict return instruction discussed with patient. Discharge - Discharge Information Problems reviewed: Yes Clinical Impression/Diagnosis: Inguinal hernia Qualifiers: Obstruction and gangrene presence: without obstruction or gangrene Laterality: bilateral Recurrence: recurrent Qualified Code(s): K40.21 - Bilateral inguinal hernia, without obstruction or gangrene, recurrent Condition: Stable Disposition: HOME - Additional Discharge Information Prescriptions: Cephalexin Monohydrate [Keflex -] 500 mg PO QID 7 Days #28 capsule - Follow up/Referral Referrals: Maggy Jha MD [Staff Physician] - Tino Kaplan MD [Primary Care Provider] - Heber Vega [Staff Physician] - - Patient Discharge Instructions Patient Printed Discharge Instructions: DI for Groin Hernia Additional Instructions: You were seen in the ER for complaints of R inguinal hernia pain Your labwork and CT were within normal You have a referral for General Surgery and should follow up within 1 week. Please follow up with your Family Doctor within 1 week. Return to the ER if you develop worsening pain, swelling, difficulty having a bowel movement, fevers or any other concerning symptoms. - Post Discharge Activity
== END 2020-04-14 14:30 | disposition home or self-care (01) ==
LOC: JER 09:42
DX: K40.90 Unilateral inguinal hernia, without obstruction or gangrene, not specified as recurrent (principal)
CPT/HCPCS: 36415; 74176-TC; 80053; 81003; 83605; 85025; 87086; 87186; 99285-25

== ENCOUNTER 2021-01-22 08:42 | Emergency (ER) | payer OTHER ==
[2021-01-22 08:51] VITALS: BMI 23.7
[2021-01-22] MEDS ORDERED: amLODIPine BESYLATE 5 MG TABLET (FP) PO ONE (09:18)
[2021-01-22] MEDS ORDERED: METOPROLOL TARTRATE 25 MG TABLET (FP) PO ONE (09:18)
[2021-01-22] MEDS ORDERED: VALSARTAN 160 MG TABLET PO ONE (09:18)
[2021-01-22] MEDS ORDERED: amLODIPine BESYLATE 5 MG TABLET (FP) ONE (09:34)
[2021-01-22] MEDS ORDERED: METOPROLOL TARTRATE 25 MG TABLET (FP) ONE (09:34)
[2021-01-22] MEDS ORDERED: VALSARTAN 80 MG TABLET ONE (09:35)
[2021-01-22 10:15] LABS: EOS % 2.5 % (0-4.5); HEMATOCRIT 39.3 % (35.4-49); HEMOGLOBIN 12.7 GM/dL (11.7-16.9); MCH 26.9 pg (25.7-33.7); MCHC 32.4 g/dl (32.0-35.9); MEAN CELL VOLUME 83.1 fl (80-96); MEAN PLT VOLUME 8.4 fl (7.5-11.1); MONO % 10.5 % (3.8-10.2); PLATELET COUNT 216 K/MM3 (134-434); RBC 4.73 M/mm3 (4.00-5.60); RDW 14.8 % (11.9-15.9); WHITE BLOOD COUNT 3.3 K/mm3 (4.0-10.0)
[2021-01-22 10:25] LABS: INR 1.1 (0.83-1.09); PROTHROMBIN TIME (PATIENT) 13.5 SEC (9.7-13.0)
[2021-01-22 10:28] LABS: ACTIVATED PTT 33.8 SECONDS (25.2-36.5)
[2021-01-22 10:37] LABS: CALCIUM 8.9 mg/dL (8.5-10.1)
[2021-01-22 10:38] LABS: ALBUMIN 3.4 g/dl (3.4-5.0); BLOOD UREA NITROGEN 10.3 mg/dL (7-18)
[2021-01-22 10:41] LABS: CREATININE 0.8 mg/dL (0.55-1.3)
[2021-01-22 10:42] LABS: BILIRUBIN,TOTAL 0.4 mg/dL (0.2-1); TOT PROT 7.1 g/dl (6.4-8.2)
[2021-01-22 12:26] VITALS: BP 170/77; PULSE 74
== END 2021-01-22 12:24 | disposition home or self-care (01) ==
LOC: JER 08:42 → SUPCPDRO 08:42 → JER 12:24
DX: K62.5 Hemorrhage of anus and rectum (principal); K59.00 Constipation, unspecified; I10 Essential (primary) hypertension
CPT/HCPCS: 36415; 80053; 82272; 85025; 85610; 85730; 86850; 86900; 86901; 99283-25

== ENCOUNTER 2021-06-15 09:08 | Emergency (ER) | payer OTHER ==
[2021-06-15 09:27] VITALS: BP 161/84; PULSE 69; TEMP 97.6; BMI 27.1
[2021-06-15 12:34] LABS: BASO % 0.6 % (0-2.0); HEMATOCRIT 42.1 % (35.4-49); LYMPH % 28.5 % (8-40); MCH 27.4 pg (25.7-33.7); MCHC 33.2 g/dl (32.0-35.9); MEAN CELL VOLUME 82.6 fl (80-96); MEAN PLT VOLUME 7.7 fl (7.5-11.1); MONO % 7.9 % (3.8-10.2); PLATELET COUNT 248 10^3/uL (134-434); RDW 15.6 % (11.9-15.9); WHITE BLOOD COUNT 3.5 K/mm3 (4.0-10.0)
[2021-06-15 12:42] LABS: INR 1.15 (0.83-1.09); PROTHROMBIN TIME (PATIENT) 12.9 SEC (9.7-13.0)
[2021-06-15 12:45] LABS: ACTIVATED PTT 32.3 SECONDS (25.2-36.5)
[2021-06-15 12:56] LABS: ALBUMIN 3.5 g/dl (3.4-5.0); BLOOD UREA NITROGEN 14.8 mg/dL (7-18); CALCIUM 9.2 mg/dL (8.5-10.1)
[2021-06-15 12:59] LABS: CREATININE 0.9 mg/dL (0.55-1.3)
[2021-06-15 13:00] LABS: BILIRUBIN,TOTAL 0.5 mg/dL (0.2-1)
== END 2021-06-15 18:02 ==
LOC: JER 09:08
DX: I70.211 Atherosclerosis of native arteries of extremities with intermittent claudication, right leg (principal)
CPT/HCPCS: 36415; 71046-TC-FY; 75635-TC; 80053; 82550; 82553; 85025; 85610; 85730; 86850; 86900; 86901; 93005; 93010; 99285-25; C9803; U0003; U0005

== ENCOUNTER 2022-03-10 11:43 | Emergency (ER) | payer OTHER ==
[2022-03-10 11:55] VITALS: BP 193/78; PULSE 74; TEMP 98; BMI 23.6
== END 2022-03-10 15:22 | disposition home or self-care (01) ==
LOC: JERFT 11:43
DX: M79.674 Pain in right toe(s) (principal)
CPT/HCPCS: 73630-TC-RT-FY; 99284-25

== ENCOUNTER 2023-02-13 12:31 | Emergency (ER) | payer OTHER ==
[2023-02-13 12:40] VITALS: BP 155/87; PULSE 60; RESP 18; TEMP 98.1; BMI 22.9
[2023-02-13] MEDS ORDERED: KETOROLAC TROMETHAMINE 15 MG/ML VIAL IM ONE (13:06)
[2023-02-13] MEDS ORDERED: LIDOCAINE 5% TOPICAL PATCH TP ONE (13:07)
[2023-02-13] MEDS ORDERED: LIDOCAINE 5% TOPICAL PATCH ONE (13:21)
[2023-02-13] MEDS ORDERED: KETOROLAC TROMETHAMINE 15 MG/ML VIAL ONE (13:21)
[2023-02-13] MEDS ORDERED: LIDOCAINE PATCH REMOVAL MC SCH (22:00)
== END 2023-02-13 14:03 | disposition home or self-care (01) ==
LOC: JER 12:31
PROC: 3E0233Z Introduction of Anti-inflammatory into Muscle, Percutaneous Approach (ICD-10-PCS; principal; 2023-02-13)
DX: M54.9 Dorsalgia, unspecified (principal); M79.604 Pain in right leg; M79.605 Pain in left leg
CPT/HCPCS: 72100-TC-FY; 96372; 99284-25